=== PATIENT | male | born 1975 | race African-American/Black ===

== ENCOUNTER → 2016-06-21 | Outpatient (CLI) | payer BC ==
[~2016-06-21] MED LIST: BLOOD PRESSURE MED
== END ==
LOC: LAB 11:01
DX: I10 Essential (primary) hypertension (principal); M25.50 Pain in unspecified joint; M06.9 Rheumatoid arthritis, unspecified
CPT/HCPCS: 86200

== ENCOUNTER → 2016-09-18 | Outpatient (CLI) | payer BC ==
[2016-09-18 10:39] LABS: Basophils # (auto) 0 uL; Basophils % (auto) 0.3 % (0.0-2.0); Eosinophils # (auto) 0 uL; Eosinophils % (auto) 0.9 % (0.0-7.0); Hemoglobin 14.6 g/dL (13.5-17.5); Lymphocytes # (auto) 2.1 uL; Lymphocytes % (auto) 36.6 % (10.0-50.0); Mean Corpuscular Hemoglobin 30.1 pg (28.0-32.0); Mean Corpuscular Hgb Conc. 33.9 g/dL (32.0-36.0); Mean Corpuscular Volume 88.8 fL (80.0-100.0); Mean Platelet Volume 9.1 fL (7.4-10.4); Monocytes # (auto) 0.4 uL; Monocytes % (auto) 7.8 % (0.0-12.0); Neutrophils # (auto) 3.1 uL; Neutrophils % (auto) 54.4 % (37.0-80.0); Platelet Count (auto) 208 10^3/uL (140-450); Red Cell Distribution Width 12.6 % (11.6-16.0); White Blood Cell 5.7 10^3/uL (4.4-10.8)
[2016-09-18 11:10] LABS: Albumin 4.1 g/dL (3.4-5.0); BUN/Creatinine Ratio 11.7; Bilirubin, Total 0.4 mg/dL (0.2-1.0); Calcium 9.4 mg/dL (8.5-10.1); Potassium 3.8 mmol/L (3.5-5.1); Total Protein 8.5 g/dL (6.4-8.2)
== END | disposition home or self-care (01) ==
LOC: LAB 09:45
DX: M06.9 Rheumatoid arthritis, unspecified (principal); M25.50 Pain in unspecified joint; D64.9 Anemia, unspecified; I10 Essential (primary) hypertension
CPT/HCPCS: 36415; 80053; 85025; 85652; 86141

== ENCOUNTER → 2017-02-05 | Outpatient (CLI) | payer BC ==
[2017-02-05 08:43] LABS: Basophils # (auto) 0 uL; Basophils % (auto) 0.3 % (0.0-2.0); Eosinophils # (auto) 0 uL; Hematocrit 40.3 % (41.0-53.0); Lymphocytes # (auto) 1.5 uL; Lymphocytes % (auto) 33.9 % (10.0-50.0); Mean Corpuscular Hemoglobin 30.7 pg (28.0-32.0); Mean Corpuscular Hgb Conc. 34.7 g/dL (32.0-36.0); Mean Corpuscular Volume 88.4 fL (80.0-100.0); Mean Platelet Volume 8.6 fL (6.9-10.8); Monocytes # (auto) 0.4 uL; Monocytes % (auto) 9.4 % (0.0-12.0); Neutrophils # (auto) 2.5 uL; Neutrophils % (auto) 55.4 % (37.0-80.0); Nucleated Red Blood Cells % 0.1 %; Platelet Count (auto) 169 10^3/uL (140-450); Red Cell Distribution Width 12.3 % (11.8-14.3); White Blood Cell 4.6 10^3/uL (4.4-10.8)
[2017-02-05 09:13] LABS: Albumin 3.9 g/dL (3.4-5.0); BUN/Creatinine Ratio 11.5; Bilirubin, Total 0.3 mg/dL (0.2-1.0); Calcium 8.8 mg/dL (8.5-10.1); Potassium 3.9 mmol/L (3.5-5.1)
== END | disposition home or self-care (01) ==
LOC: LAB 08:28
DX: I10 Essential (primary) hypertension (principal); M06.9 Rheumatoid arthritis, unspecified; D64.9 Anemia, unspecified; Z79.899 Other long term (current) drug therapy; M25.50 Pain in unspecified joint
CPT/HCPCS: 36415; 80053; 85025; 85652; 86141

== ENCOUNTER → 2018-02-12 | Outpatient (CLI) | payer BC ==
[2018-02-12 13:42] LABS: Urine Bacteria NONE SEEN /hpf (None Seen); Urine Blood Negative /uL (Negative); Urine Specific Gravity 1.021 (1.001-1.035); Urine WBC 1 /hpf (0 - 3)
[2018-02-12 14:19] LABS: Albumin 3.9 g/dL (3.4-5.0); Potassium 4.3 mmol/L (3.5-5.1)
[2018-02-12 14:21] LABS: BUN/Creatinine Ratio 9.2; CRP High Sensitivity 0.44 mg/dL (< 0.3); Calcium 8.5 mg/dL (8.5-10.1); Total Protein 8.3 g/dL (6.4-8.2); Uric Acid 6.9 mg/dL (3.5-7.2)
[2018-02-12 14:23] LABS: Bilirubin, Total 0.6 mg/dL (0.2-1.0)
[2018-02-12 14:41] LABS: Basophils # (auto) 0 uL; Eosinophils # (auto) 0 uL
[2018-02-12 14:46] LABS: Basophils % (auto) 0.2 % (0.0-2.0); Eosinophils % (auto) 0.7 % (0.0-7.0); Hematocrit 38.4 % (41.0-53.0); Hemoglobin 13.4 g/dL (13.5-17.5); Lymphocytes # (auto) 1.6 uL; Lymphocytes % (auto) 27.3 % (10.0-50.0); Mean Corpuscular Hemoglobin 30.9 pg (28.0-32.0); Mean Corpuscular Hgb Conc. 34.8 g/dL (32.0-36.0); Mean Corpuscular Volume 88.6 fL (80.0-100.0); Monocytes # (auto) 0.5 uL; Monocytes % (auto) 7.7 % (0.0-12.0); Neutrophils # (auto) 3.8 uL; Neutrophils % (auto) 64.1 % (37.0-80.0); Platelet Count (auto) 210 10^3/uL (140-450); Red Blood Cells 4.33 10^6/uL (4.5-5.90)
[2018-02-12 17:43] LABS: Hepatitis B Core IgM Negative
[2018-02-12 17:44] LABS: Hepatitis B Surface Antigen Negative (Negative)
[2018-02-12 17:45] LABS: Hepatitis C Antibody Negative (Negative)
[2018-02-12 17:55] LABS: Hepatitis A Ab IgM Negative
[2018-02-13 20:05] LABS: Protein, Urine 28.5 mg/dL (0.0-11.9)
== END | disposition home or self-care (01) ==
LOC: LAB 12:12
PROVIDERS: ATTEND Internal Medicine
DX: M06.9 Rheumatoid arthritis, unspecified (principal)
CPT/HCPCS: 36415; 80053; 80074; 81001; 82570; 84156; 84550; 85025; 85652; 86038; 86141; 86160; 86200; 86235; 86431; 86812

== ENCOUNTER → 2018-03-24 | Outpatient (CLI) | payer BC ==
[2018-03-24 09:51] LABS: Basophils # (auto) 0 uL; Basophils % (auto) 0.2 % (0.0-2.0); Eosinophils # (auto) 0.1 uL; Hematocrit 42.2 % (41.0-53.0); Hemoglobin 14.3 g/dL (13.5-17.5); Lymphocytes # (auto) 1.9 uL; Lymphocytes % (auto) 28.5 % (10.0-50.0); Mean Corpuscular Hemoglobin 29.9 pg (28.0-32.0); Mean Corpuscular Hgb Conc. 33.9 g/dL (32.0-36.0); Mean Corpuscular Volume 88.3 fL (80.0-100.0); Monocytes # (auto) 0.5 uL; Neutrophils # (auto) 4.1 uL; Neutrophils % (auto) 62.3 % (37.0-80.0); Nucleated Red Blood Cells % 0.1 %; Platelet Count (auto) 198 10^3/uL (140-450); Red Blood Cells 4.78 10^6/uL (4.5-5.90); Red Cell Distribution Width 13.2 % (11.8-14.3); White Blood Cell 6.6 10^3/uL (4.4-10.8)
[2018-03-24 09:59] LABS: Uric Acid 7.2 mg/dL (3.5-7.2)
== END | disposition home or self-care (01) ==
LOC: LAB 09:38
PROVIDERS: ATTEND Internal Medicine
DX: M06.9 Rheumatoid arthritis, unspecified (principal); E78.5 Hyperlipidemia, unspecified
CPT/HCPCS: 36415; 80061; 84550; 85025; 86431

== ENCOUNTER → 2018-11-23 | Outpatient (CLI) | payer BC ==
[~2018-11-23] MED LIST changes: +LISI-646 PO; +METO25TA5 PO
[2018-11-23 14:07] LABS: Cholesterol 184 mg/dL (< 200); HDL Cholesterol 32 mg/dL (40-59); LDL Cholesterol 116 mg/dL (< 100); Triglycerides 266 mg/dL (< 150)
== END | disposition home or self-care (01) ==
LOC: LAB 13:28
PROVIDERS: ATTEND Family Medicine
DX: E78.00 Pure hypercholesterolemia, unspecified (principal); I10 Essential (primary) hypertension; M05.79 Rheumatoid arthritis with rheumatoid factor of multiple sites without organ or systems involvement; Z83.3 Family history of diabetes mellitus
CPT/HCPCS: 36415; 80061; 83036

== ENCOUNTER 2018-11-27 06:08 | Day surgery (SDC) | payer BC ==
[2018-11-25 13:55] LABS: Basophils # (auto) 0 uL; Basophils % (auto) 0.2 % (0.0-2.0); Eosinophils # (auto) 0.1 uL; Eosinophils % (auto) 1.1 % (0.0-7.0); Hematocrit 40.6 % (41.0-53.0); Lymphocytes # (auto) 2.2 uL; Lymphocytes % (auto) 31.5 % (10.0-50.0); Mean Corpuscular Hemoglobin 30.5 pg (28.0-32.0); Mean Corpuscular Hgb Conc. 34.5 g/dL (32.0-36.0); Mean Corpuscular Volume 88.3 fL (80.0-100.0); Monocytes # (auto) 0.8 uL; Monocytes % (auto) 10.7 % (0.0-12.0); Neutrophils % (auto) 56.5 % (37.0-80.0); Nucleated Red Blood Cells % 0.1 %; Platelet Count (auto) 214 10^3/uL (140-450); White Blood Cell 7.1 10^3/uL (4.4-10.8)
[2018-11-25 14:10] LABS: INR 0.93 (0.9-1.15); Partial Thromboplastin Time 26.9 sec (23.64-32.05)
[2018-11-25 14:17] LABS: Albumin 3.8 g/dL (3.4-5.0); BUN/Creatinine Ratio 11.4; Calcium 8.6 mg/dL (8.5-10.1); Potassium 3.7 mmol/L (3.5-5.1)
[2018-11-25 14:20] LABS: Bilirubin, Total 0.3 mg/dL (0.2-1.0); Total Protein 8.3 g/dL (6.4-8.2)
[2018-11-25 14:48] LABS: Urine Bacteria NONE SEEN /hpf (None Seen); Urine Blood Negative /uL (Negative); Urine Mucus FEW (None Seen); Urine WBC 1 /hpf (0 - 3)
[~2018-11-27] VITALS: Ht 177.8 cm; Wt 95.3 kg
[~2018-11-27 06:08] MED LIST changes: -BLOOD PRESSURE MED
[2018-11-27] MEDS ORDERED: ceFAZolin 1GM/50ML 50 ML IV ONE (07:07)
[2018-11-27] MEDS ORDERED: SUCCINYLCHOLINE CHLORIDE 20 MG/ML 10ML VIAL IV ONE (07:19)
[2018-11-27] MEDS ORDERED: LIDOCAINE 1% HCL (LOCAL ANESTH.) INJ 20ML MDV ONE ×2 (07:19→07:43)
[2018-11-27] MEDS ORDERED: PROPOFOL 10 MG/ML 20 ML IV ONE (07:25)
[2018-11-27] MEDS ORDERED: METOCLOPRAMIDE HCL 5MG/ml INJ 2ml VIAL ONE (07:25)
[2018-11-27] MEDS ORDERED: MIDAZOLAM HCL 1MG/1ML-2 ML VIAL ONE (07:25)
[2018-11-27] MEDS ORDERED: ROCURONIUM 10MG/ML 10ML VIAL IV ONE (07:25)
[2018-11-27] MEDS ORDERED: fentaNYL CITRATE 100 MCG/2 ML VL ONE (07:42)
[2018-11-27] MEDS ORDERED: hydrALAZINE HCL 20 MG/ML VL ONE (07:43)
[2018-11-27] MEDS ORDERED: LIDOCAINE W/ EPINEPHRINE 1 % INJ 30ML ONE (07:43)
[2018-11-27] MEDS ORDERED: BUPIVACAINE 0.25% INJ 50ML VIAL ONE (08:02)
[2018-11-27] MEDS ORDERED: ONDANSETRON HCL 4 MG/2 ML VIAL IV ONE (08:15)
[2018-11-27] MEDS ORDERED: HYDROmorphone HCL 2 MG/ML VL IV PRN ×2 (08:15)
[2018-11-27] MEDS ORDERED: NALOXONE HCL 0.4 MG/ML VIAL IV PRN (08:15)
[2018-11-27] MEDS ORDERED: hydrALAZINE HCL 20 MG/ML VL IV PRN (08:15)
[2018-11-27] MEDS ORDERED: MEPERIDINE HCL (25 MG/ML) 1ML VIAL ONE (08:20)
[2018-11-27] MEDS ORDERED: ePHEDrine SULFATE 50 MG/ML AMP ONE (08:47)
[2018-11-27] MEDS ORDERED: SODIUM CHLORIDE LOCK 10 ML ONE (08:47)
[2018-11-27 10:57] VITALS: BP 135/82
[2018-11-27] MEDS ORDERED: PROMETHAZINE HCL 25 MG/ML 1ML IM ONE (11:20)
[2018-11-27] MEDS ORDERED: PROMETHAZINE HCL 25 MG/ML 1ML ONE (11:23)
== END 2018-11-27 11:35 | disposition home or self-care (01) ==
LOC: SUR 06:08
PROVIDERS: ATTEND Orthopaedic Surgery
DX: S43.491A Other sprain of right shoulder joint, initial encounter (principal); M75.41 Impingement syndrome of right shoulder; R22.31 Localized swelling, mass and lump, right upper limb; M19.011 Primary osteoarthritis, right shoulder; I10 Essential (primary) hypertension; G47.33 Obstructive sleep apnea (adult) (pediatric); Z79.899 Other long term (current) drug therapy; X58.XXXA Exposure to other specified factors, initial encounter; Y93.89 Activity, other specified; Y92.89 Other specified places as the place of occurrence of the external cause; Y99.8 Other external cause status
CPT/HCPCS: 23076; 23120; 29822; 29826; 36415; 80053; 81001; 85025; 85610; 85730; 88304; 88311; J0330; J0360; J0690; J1170; J2001; J2175; J2250; J2405; J2550; J2704; J2765; J3010; J3490; A4565

== ENCOUNTER → 2019-09-03 | Outpatient (CLI) | payer BC ==
[2019-09-03 10:46] LABS: Basophils # (auto) 0 10 ^3/uL (0-0.2); Basophils % (auto) 0.3 % (0.0-2.0); Eosinophils # (auto) 0 10 ^3/uL (0-0.8); Eosinophils % (auto) 0.6 % (0.0-7.0); Hematocrit 42.2 % (41.0-53.0); Lymphocytes # (auto) 1.7 10 ^3/uL (0.4-5.4); Lymphocytes % (auto) 32.7 % (10.0-50.0); Mean Corpuscular Hemoglobin 29.6 pg (28.0-32.0); Mean Corpuscular Hgb Conc. 33.1 g/dL (32.0-36.0); Mean Corpuscular Volume 89.4 fL (80.0-100.0); Monocytes # (auto) 0.3 10 ^3/uL (0-1.3); Monocytes % (auto) 6.6 % (0.0-12.0); Neutrophils # (auto) 3.1 10 ^3/uL (1.6-8.6); Neutrophils % (auto) 59.8 % (37.0-80.0); Nucleated Red Blood Cells % 0.1 %; Platelet Count (auto) 181 10^3/uL (140-450); Red Blood Cells 4.72 10^6/uL (4.5-5.90); Red Cell Distribution Width 12.6 % (11.8-14.3); White Blood Cell 5.2 10^3/uL (4.4-10.8)
[2019-09-03 10:58] LABS: Urine Bacteria NONE SEEN /hpf (None Seen); Urine Blood Negative /uL (Negative); Urine Mucus FEW (None Seen); Urine Specific Gravity 1.026 (1.001-1.035); Urine WBC <1 /hpf (0 - 3)
[2019-09-03 11:30] LABS: Albumin 3.9 g/dL (3.4-5.0); Calcium 8.8 mg/dL (8.5-10.1); Potassium 3.8 mmol/L (3.5-5.1)
[2019-09-03 11:34] LABS: BUN/Creatinine Ratio 11.3; Bilirubin, Total 0.5 mg/dL (0.2-1.0); CRP High Sensitivity 0.56 mg/dL (< 0.3); Total Protein 8.2 g/dL (6.4-8.2)
== END | disposition home or self-care (01) ==
LOC: LAB 10:27
PROVIDERS: ATTEND Family Medicine
DX: I10 Essential (primary) hypertension (principal); E78.49 Other hyperlipidemia; M25.50 Pain in unspecified joint; M05.79 Rheumatoid arthritis with rheumatoid factor of multiple sites without organ or systems involvement
CPT/HCPCS: 36415; 80053; 80061; 81001; 83615; 85025; 86141; 86225; 86235; 86704; 86706; 86708; 86803; 87340

== ENCOUNTER 2019-10-22 15:04 | Emergency (ER) | payer BC, OTHER ==
[~2019-10-22] VITALS: Ht 177.8 cm; Wt 93.0 kg
[2019-10-22 15:36] VITALS: BP 149/98
== END 2019-10-22 16:05 | disposition home or self-care (01) ==
LOC: EEVIPCON 15:04 → ER 15:04
DX: S10.93XA Contusion of unspecified part of neck, initial encounter (principal); S00.03XA Contusion of scalp, initial encounter; I10 Essential (primary) hypertension; Z79.899 Other long term (current) drug therapy; W22.8XXA Striking against or struck by other objects, initial encounter; Y93.89 Activity, other specified; Y92.89 Other specified places as the place of occurrence of the external cause; Y99.8 Other external cause status
CPT/HCPCS: 72040

== ENCOUNTER → 2019-12-06 | Outpatient (CLI) | payer OTHER | END | disposition home or self-care (01) | LOC: LAB 12:58 | PROVIDERS: ATTEND Nurse Practitioner Family | DX: Z03.818 Encounter for observation for suspected exposure to other biological agents ruled out (principal) ==

== ENCOUNTER → 2020-04-14 | Outpatient (CLI) | payer OTHER | END | disposition home or self-care (01) | LOC: LAB 13:35 | PROVIDERS: ATTEND Nurse Practitioner Family | DX: Z20.828 Contact with and (suspected) exposure to other viral communicable diseases (principal) | CPT/HCPCS: C9803; U0003 ==

== ENCOUNTER → 2021-04-04 | Outpatient (CLI) | payer BC ==
[~2021-04-04] MED LIST changes: -LISI-646 PO; +LISI20TA28 PO
[2021-04-04 15:13] LABS: Protein, Urine 25.8 mg/dL (0.0-11.9)
== END | disposition home or self-care (01) ==
LOC: LAB 14:01
PROVIDERS: ATTEND Student in an Organized Health Care Education/Training Program
DX: Z11.52 Encounter for screening for COVID-19 (principal); Z20.822 Contact with and (suspected) exposure to COVID-19
CPT/HCPCS: 82570; 84156

== ENCOUNTER → 2021-06-08 | Outpatient (CLI) | payer BC ==
[2021-06-08 15:01] LABS: Basophils # (auto) 0.2 10 ^3/uL (0-0.2); Basophils % (auto) 3.6 % (0.0-2.0); Eosinophils # (auto) 0.1 10 ^3/uL (0-0.8); Eosinophils % (auto) 0.9 % (0.0-7.0); Hematocrit 41.9 % (41.0-53.0); Hemoglobin 14.6 g/dL (13.5-17.5); Lymphocytes # (auto) 1.8 10 ^3/uL (0.4-5.4); Lymphocytes % (auto) 29.5 % (10.0-50.0); Mean Corpuscular Hemoglobin 30.6 pg (28.0-32.0); Mean Corpuscular Hgb Conc. 34.8 g/dL (32.0-36.0); Mean Corpuscular Volume 88.1 fL (80.0-100.0); Monocytes # (auto) 0.6 10 ^3/uL (0-1.3); Monocytes % (auto) 9.5 % (0.0-12.0); Neutrophils # (auto) 3.4 10 ^3/uL (1.6-8.6); Neutrophils % (auto) 56.5 % (37.0-80.0); Nucleated Red Blood Cells % 0.1 %; Red Blood Cells 4.76 10^6/uL (4.5-5.90); Red Cell Distribution Width 12.9 % (11.8-14.3)
[2021-06-08 15:20] LABS: Potassium 3.8 mmol/L (3.5-5.1)
[2021-06-08 15:24] LABS: BUN/Creatinine Ratio 13.3; Bilirubin, Total 0.3 mg/dL (0.2-1.0); CRP High Sensitivity 0.52 mg/dL (< 0.3)
== END | disposition home or self-care (01) ==
LOC: LAB 14:51
PROVIDERS: ATTEND Internal Medicine Rheumatology
DX: M05.79 Rheumatoid arthritis with rheumatoid factor of multiple sites without organ or systems involvement (principal)
CPT/HCPCS: 36415; 80053; 85025; 85652; 86141

== ENCOUNTER → 2021-07-18 | Outpatient (CLI) | payer BC ==
[2021-07-18 10:46] LABS: Potassium 3.6 mmol/L (3.5-5.1)
[2021-07-18 10:54] LABS: BUN/Creatinine Ratio 14.8; Bilirubin, Total 0.4 mg/dL (0.2-1.0); Calcium 9.2 mg/dL (8.5-10.1); Total Protein 7.9 g/dL (6.4-8.2)
== END | disposition home or self-care (01) ==
LOC: LAB 08:50
PROVIDERS: ATTEND Student in an Organized Health Care Education/Training Program
DX: I10 Essential (primary) hypertension (principal); E78.49 Other hyperlipidemia; E78.1 Pure hyperglyceridemia; Z83.3 Family history of diabetes mellitus
CPT/HCPCS: 36415; 80053; 80061; 82274; 83036

== ENCOUNTER → 2021-11-29 | Outpatient (CLI) | payer BC | END | disposition home or self-care (01) | LOC: LAB 10:47 | PROVIDERS: ATTEND Nurse Practitioner Family | DX: Z20.822 Contact with and (suspected) exposure to COVID-19 (principal) | CPT/HCPCS: C9803; U0003 ==

== ENCOUNTER → 2022-02-15 | Outpatient (CLI) | payer BC ==
[2022-02-15 06:39] LABS: Basophils # (auto) 0 10 ^3/uL (0-0.2); Basophils % (auto) 0.1 % (0.0-2.0); Eosinophils # (auto) 0.1 10 ^3/uL (0-0.8); Hematocrit 41.9 % (41.0-53.0); Hemoglobin 14.1 g/dL (13.5-17.5); Lymphocytes # (auto) 1.8 10 ^3/uL (0.4-5.4); Lymphocytes % (auto) 30.1 % (10.0-50.0); Mean Corpuscular Hemoglobin 29.6 pg (28.0-32.0); Mean Corpuscular Hgb Conc. 33.6 g/dL (32.0-36.0); Mean Corpuscular Volume 88.2 fL (80.0-100.0); Monocytes # (auto) 0.5 10 ^3/uL (0-1.3); Monocytes % (auto) 7.8 % (0.0-12.0); Neutrophils # (auto) 3.7 10 ^3/uL (1.6-8.6); Nucleated Red Blood Cells % 0.2 %; Red Blood Cells 4.76 10^6/uL (4.5-5.90); Red Cell Distribution Width 13.1 % (11.8-14.3); White Blood Cell 6.1 10^3/uL (4.4-10.8)
[2022-02-15 08:04] LABS: Albumin 3.8 g/dL (3.4-5.0); BUN/Creatinine Ratio 13.8; Bilirubin, Total 0.4 mg/dL (0.2-1.0); Calcium 8.9 mg/dL (8.5-10.1); Total Protein 7.5 g/dL (6.4-8.2)
== END | disposition home or self-care (01) ==
LOC: LAB 06:23
PROVIDERS: ATTEND Student in an Organized Health Care Education/Training Program
DX: I10 Essential (primary) hypertension (principal); E78.5 Hyperlipidemia, unspecified
CPT/HCPCS: 36415; 80053; 80061; 85025

== ENCOUNTER 2022-06-19 00:36 | Emergency (ER) | payer BC, OTHER ==
[~2022-06-19] VITALS: Ht 177.8 cm; Wt 98.0 kg
[2022-06-19 01:06] LABS: Basophils # (auto) 0 10 ^3/uL (0-0.2); Basophils % (auto) 0.2 % (0.0-2.0); Eosinophils # (auto) 0.1 10 ^3/uL (0-0.8); Eosinophils % (auto) 0.7 % (0.0-7.0); Hematocrit 41.5 % (41.0-53.0); Hemoglobin 14.4 g/dL (13.5-17.5); Lymphocytes # (auto) 2.9 10 ^3/uL (0.4-5.4); Lymphocytes % (auto) 35.2 % (10.0-50.0); Mean Corpuscular Hemoglobin 30.6 pg (28.0-32.0); Mean Corpuscular Hgb Conc. 34.6 g/dL (32.0-36.0); Mean Corpuscular Volume 88.3 fL (80.0-100.0); Monocytes # (auto) 0.8 10 ^3/uL (0-1.3); Monocytes % (auto) 10.3 % (0.0-12.0); Neutrophils # (auto) 4.4 10 ^3/uL (1.6-8.6); Neutrophils % (auto) 53.6 % (37.0-80.0); Nucleated Red Blood Cells % 0.2 %; Red Cell Distribution Width 13.2 % (11.8-14.3); White Blood Cell 8.2 10^3/uL (4.4-10.8)
[2022-06-19 01:13] LABS: INR 0.92 (0.9-1.15); Partial Thromboplastin Time 27.4 sec (24.6-33.4)
[2022-06-19 01:17] LABS: Albumin 3.9 g/dL (3.4-5.0); BUN/Creatinine Ratio 15.2; Magnesium 2.4 mg/dL (1.6-2.6); Potassium 3.1 mmol/L (3.5-5.1)
[2022-06-19 01:24] LABS: Bilirubin, Total 0.3 mg/dL (0.2-1.0); Total Protein 8.2 g/dL (6.4-8.2)
[2022-06-19] MEDS ORDERED: POTASSIUM EFFERVESENT TAB 25 MEQ PO ONE (03:45)
[2022-06-19 04:00] VITALS: BP 117/63
[2022-06-19] MEDS ORDERED: POTA10TA51 PO (04:14)
== END 2022-06-19 04:51 | disposition admitted as inpatient to this hospital (09) ==
LOC: EEVIPCON 00:36 → ER 00:36
DX: R00.2 Palpitations (principal); N17.9 Acute kidney failure, unspecified; E87.6 Hypokalemia; I10 Essential (primary) hypertension; Z98.890 Other specified postprocedural states
CPT/HCPCS: 36415; 71045; 80053; 83735; 83880; 84484; 85025; 85610; 85730; 93005

== ENCOUNTER → 2022-07-04 | Outpatient (CLI) | payer BC ==
[~2022-07-04] MED LIST changes: +POTA10TA51 PO
[2022-07-04 15:32] LABS: Free T4 (Free Thyroxine) 1.16 ng/dL (0.89-1.76)
[2022-07-04 15:33] LABS: Free T3 3.39 pg/mL (2.3-4.2)
== END | disposition home or self-care (01) ==
LOC: LAB 14:23
PROVIDERS: ATTEND Internal Medicine
DX: I10 Essential (primary) hypertension (principal); E78.49 Other hyperlipidemia; R00.2 Palpitations; R53.83 Other fatigue
CPT/HCPCS: 36415; 84403; 84439; 84443; 84481

== ENCOUNTER → 2022-07-04 | Outpatient (CLI) | payer BC | END | disposition home or self-care (01) | LOC: XYW 07:32 | PROVIDERS: ATTEND Internal Medicine | DX: I07.1 Rheumatic tricuspid insufficiency (principal); R00.2 Palpitations | CPT/HCPCS: 93306 ==

== ENCOUNTER → 2022-07-05 | Outpatient (CLI) | payer BC | END | disposition home or self-care (01) | LOC: XYW 10:03 | PROVIDERS: ATTEND Internal Medicine | DX: I12.9 Hypertensive chronic kidney disease with stage 1 through stage 4 chronic kidney disease, or unspecified chronic kidney disease (principal); N18.2 Chronic kidney disease, stage 2 (mild); R00.2 Palpitations; R07.89 Other chest pain; R53.83 Other fatigue; R06.83 Snoring; R29.818 Other symptoms and signs involving the nervous system; E78.5 Hyperlipidemia, unspecified; R79.89 Other specified abnormal findings of blood chemistry | CPT/HCPCS: 78452; 93017; A9500 ==

== ENCOUNTER 2022-09-04 07:14 | Day surgery (SDC) | payer BC ==
[2022-09-02 14:38] LABS: Basophils # (auto) 0.2 10 ^3/uL (0-0.2); Basophils % (auto) 3.5 % (0.0-2.0); Eosinophils # (auto) 0.1 10 ^3/uL (0-0.8); Hemoglobin 13.9 g/dL (13.5-17.5); Lymphocytes # (auto) 1.9 10 ^3/uL (0.4-5.4); Lymphocytes % (auto) 35.6 % (10.0-50.0); Mean Corpuscular Hemoglobin 30.2 pg (28.0-32.0); Mean Corpuscular Hgb Conc. 33.9 g/dL (32.0-36.0); Mean Corpuscular Volume 89.2 fL (80.0-100.0); Monocytes # (auto) 0.4 10 ^3/uL (0-1.3); Monocytes % (auto) 7.5 % (0.0-12.0); Neutrophils # (auto) 2.8 10 ^3/uL (1.6-8.6); Neutrophils % (auto) 52.4 % (37.0-80.0); Nucleated Red Blood Cells % 0.3 %; Red Blood Cells 4.59 10^6/uL (4.5-5.90); Red Cell Distribution Width 13.1 % (11.8-14.3); White Blood Cell 5.4 10^3/uL (4.4-10.8)
[2022-09-02 15:06] LABS: Potassium 3.9 mmol/L (3.5-5.1)
[2022-09-02 15:14] LABS: Albumin 4.1 g/dL (3.4-5.0); BUN/Creatinine Ratio 11.9 (10.0-20.0); Bilirubin, Total 0.4 mg/dL (0.2-1.0); Total Protein 7.8 g/dL (6.4-8.2)
[2022-09-02 15:19] LABS: INR 0.94 (0.9-1.15); Partial Thromboplastin Time 28.2 sec (24.6-33.4)
[~2022-09-04] VITALS: Ht 177.8 cm; Wt 97.5 kg
[~2022-09-04 07:14] MED LIST changes: +AMIO200T33 PO; +APIX5TAB PO; +HYDR25TA5 PO; -LISI20TA28 PO; +LOSA25TA38 PO; -POTA10TA51 PO
[2022-09-04] MEDS ORDERED: MIDAZOLAM HCL 2MG/2ML 2ml VIAL (1mg/ml) ONE (09:50)
[2022-09-04] MEDS ORDERED: fentaNYL CITRATE 100 MCG/2 ML VL ONE (09:50)
[2022-09-04] MEDS ORDERED: VERAPAMIL 2.5MG/ML INJ 2ML VIAL IV ONE (09:50)
[2022-09-04] MEDS ORDERED: ANGIOMAX 250 MG VIAL IV ONE (09:50)
[2022-09-04] MEDS ORDERED: HEPARIN SODIUM (PORCINE) 5000 UNITS/ML 1ML VIAL ONE (09:50)
[2022-09-04] MEDS ORDERED: LIDOCAINE 2%HCL (LOCAL ANESTH.) INJ 20ML MDV ONE (09:50)
[2022-09-04] MEDS ORDERED: SODIUM CHL 0.9% 0 ML ONE ×2 (09:51→09:56)
[2022-09-04] MEDS ORDERED: IODIXANOL 320MG/ML 100ML BTL IV ONE (09:51)
[2022-09-04] MEDS ORDERED: NITROGLYCERIN 5MG/ML 10ML VIAL IV ONE (09:56)
== END 2022-09-04 12:50 | disposition home or self-care (01) ==
LOC: EEVIPCON → CATH 07:14
PROVIDERS: ATTEND Internal Medicine
DX: R07.89 Other chest pain (principal); I10 Essential (primary) hypertension; Z80.9 Family history of malignant neoplasm, unspecified; Z79.899 Other long term (current) drug therapy; Z20.822 Contact with and (suspected) exposure to COVID-19
CPT/HCPCS: 36415; 76937; 80053; 85025; 85610; 85730; 93458; C1769; C1887; C1894; J1644; J2250; J3010; Q9967; 99152; 99153; J3490

== ENCOUNTER → 2022-09-27 | Outpatient (CLI) | payer BC | END | disposition home or self-care (01) | LOC: LAB 08:55 | PROVIDERS: ATTEND Internal Medicine | DX: R68.82 Decreased libido (principal) | CPT/HCPCS: 36415; 82626; 84403 ==

== ENCOUNTER → 2022-11-21 | Outpatient (CLI) | payer BC ==
[~2022-11-21] MED LIST changes: +LOSA25TA15 PO; -LOSA25TA38 PO
== END | disposition home or self-care (01) ==
LOC: LAB 08:06
PROVIDERS: ATTEND Internal Medicine
DX: R86.1 Abnormal level of hormones in specimens from male genital organs (principal)
CPT/HCPCS: 36415; 84403

== ENCOUNTER → 2022-12-11 | Outpatient (CLI) | payer BC ==
[2022-12-11 13:35] LABS: Basophils # (auto) 0 10 ^3/uL (0-0.2); Basophils % (auto) 0.2 % (0.0-2.0); Eosinophils # (auto) 0 10 ^3/uL (0-0.8); Eosinophils % (auto) 0.7 % (0.0-7.0); Hemoglobin 16.3 g/dL (13.5-17.5); Lymphocytes # (auto) 1.9 10 ^3/uL (0.4-5.4); Lymphocytes % (auto) 29.3 % (10.0-50.0); Mean Corpuscular Hemoglobin 30.9 pg (28.0-32.0); Mean Corpuscular Hgb Conc. 33.2 g/dL (32.0-36.0); Mean Corpuscular Volume 93.2 fL (80.0-100.0); Monocytes # (auto) 0.5 10 ^3/uL (0-1.3); Monocytes % (auto) 7.7 % (0.0-12.0); Neutrophils # (auto) 3.9 10 ^3/uL (1.6-8.6); Neutrophils % (auto) 62.1 % (37.0-80.0); Nucleated Red Blood Cells % 0.1 %; Red Blood Cells 5.27 10^6/uL (4.5-5.90); White Blood Cell 6.3 10^3/uL (4.4-10.8)
[2022-12-11 13:56] LABS: Albumin 4.3 g/dL (3.4-5.0); Calcium 9.2 mg/dL (8.5-10.1); Potassium 4.2 mmol/L (3.5-5.1)
[2022-12-11 14:03] LABS: BUN/Creatinine Ratio 7.3 (10.0-20.0); Bilirubin, Total 0.5 mg/dL (0.2-1.0); Total Protein 8.7 g/dL (6.4-8.2)
== END | disposition home or self-care (01) ==
LOC: LAB 13:21
PROVIDERS: ATTEND Internal Medicine
DX: I10 Essential (primary) hypertension (principal); E29.1 Testicular hypofunction; R79.89 Other specified abnormal findings of blood chemistry
CPT/HCPCS: 36415; 80053; 84403; 85025

== ENCOUNTER → 2023-03-14 | Outpatient (CLI) | payer BC | END | disposition home or self-care (01) | LOC: LAB 12:13 | PROVIDERS: ATTEND Internal Medicine | DX: E29.1 Testicular hypofunction (principal) | CPT/HCPCS: 36415; 84403 ==

== ENCOUNTER → 2023-09-19 | Day surgery (SDC) | payer BC ==
[2023-09-16 08:42] LABS: Urine Bacteria None Seen /hpf (None Seen)
[2023-09-16 08:49] LABS: Basophils # (auto) 0 10 ^3/uL (0-0.2); Basophils % (auto) 0.3 % (0.0-2.0); Eosinophils # (auto) 0 10 ^3/uL (0-0.8); Eosinophils % (auto) 0.8 % (0.0-7.0); Hematocrit 47.9 % (41.0-53.0); Hemoglobin 15.9 g/dL (13.5-17.5); Lymphocytes # (auto) 1.3 10 ^3/uL (0.4-5.4); Lymphocytes % (auto) 24.2 % (10.0-50.0); Mean Corpuscular Hemoglobin 30.8 pg (28.0-32.0); Mean Corpuscular Hgb Conc. 33.2 g/dL (32.0-36.0); Mean Corpuscular Volume 92.9 fL (80.0-100.0); Monocytes # (auto) 0.5 10 ^3/uL (0-1.3); Monocytes % (auto) 9.1 % (0.0-12.0); Neutrophils # (auto) 3.6 10 ^3/uL (1.6-8.6); Neutrophils % (auto) 65.6 % (37.0-80.0); Red Blood Cells 5.16 10^6/uL (4.5-5.90); Red Cell Distribution Width 13.7 % (11.8-14.3); White Blood Cell 5.5 10^3/uL (4.4-10.8)
[2023-09-16 08:59] LABS: Urine Blood Negative /uL (Negative); Urine Clarity Clear (Clear); Urine Color Light-Yellow (Yellow); Urine Mucus FEW (None Seen); Urine Protein, UAD Negative (Negative); Urine Specific Gravity 1.018 (1.001-1.035); Urine Urobilinogen Normal (Negative); Urine WBC 1 /hpf (0 - 3); Urine pH 5.5 (5.0-9.0)
[2023-09-16 09:05] LABS: INR 1.01 (0.9-1.15); Partial Thromboplastin Time 27.6 SEC (24.5-34.5); Prothrombin Time 10.7 sec (9.3-11.8)
[2023-09-16 09:23] LABS: Alanine Aminotransferase 42 U/L (7-40); Albumin 4.6 g/dL (3.2-4.8); Alkaline Phosphatase 70 U/L (46-116); Anion Gap 3 (5-15); Aspartate Aminotransferase 27 U/L (13-40); BUN/Creatinine Ratio 9.9 (10.0-20.0); Blood Urea Nitrogen 15 mg/dL (9-23); Calcium 9.8 mg/dL (8.5-10.1); Carbon Dioxide 29 mmol/L (20-30); Chloride 108 mmol/L (98-107); Glucose 98 mg/dL (74-106); Potassium 3.8 mmol/L (3.5-5.1); Sodium 140 mmol/L (136-145)
[2023-09-16 09:24] LABS: Bilirubin, Total 0.5 mg/dL (0.2-1.0); Total Protein 7.5 g/dL (5.7-8.2)
[~2023-09-19] VITALS: Ht 177.8 cm; Wt 95.3 kg
[~2023-09-19] MED LIST changes: +EMPA1TAB3 PO; +KETAMINE 50mg/ML 1ml syringe ONE; +LIDOCAINE 2% (LOCAL ANESTH.) PF 5ml SDV ONE; +LOSA-535 PO; -LOSA25TA15 PO; +MIDAZOLAM HCL 2MG/2ML 2ml VIAL (1mg/ml) ONE; +ONDANSETRON HCL 4 MG/2 ML VIAL IV ONE; +ONDANSETRON HCL 4 MG/2 ML VIAL ONE; +PROPOFOL 10 MG/ML 20 ML IV ONE; +ROSU10TA16 PO; +fentaNYL CITRATE 100 MCG/2 ML VL ONE
[2023-09-19 10:37] VITALS: TEMP 98.4; O2SAT 100
[2023-09-19 11:35] VITALS: BP 138/84; PULSE 56; RESP 17; O2SAT 98
== END | disposition home or self-care (01) ==
LOC: GI 05:55
PROVIDERS: ATTEND Internal Medicine Gastroenterology
DX: R19.4 Change in bowel habit (principal); K29.50 Unspecified chronic gastritis without bleeding; K64.8 Other hemorrhoids; K29.80 Duodenitis without bleeding; K44.9 Diaphragmatic hernia without obstruction or gangrene; G47.33 Obstructive sleep apnea (adult) (pediatric); I12.9 Hypertensive chronic kidney disease with stage 1 through stage 4 chronic kidney disease, or unspecified chronic kidney disease; N18.2 Chronic kidney disease, stage 2 (mild); Z80.8 Family history of malignant neoplasm of other organs or systems; Z79.899 Other long term (current) drug therapy; Z98.890 Other specified postprocedural states
CPT/HCPCS: 36415; 43239; 45378; 80053; 81001; 85025; 85610; 85730; 88305; 88312; 88342; J2001; J2250; J2405; J2704; J3010; J7030

== ENCOUNTER → 2023-10-01 | Outpatient (CLI) | payer BC ==
[~2023-10-01] MED LIST changes: -KETAMINE 50mg/ML 1ml syringe ONE; -LIDOCAINE 2% (LOCAL ANESTH.) PF 5ml SDV ONE; -MIDAZOLAM HCL 2MG/2ML 2ml VIAL (1mg/ml) ONE; -ONDANSETRON HCL 4 MG/2 ML VIAL IV ONE; -ONDANSETRON HCL 4 MG/2 ML VIAL ONE; -PROPOFOL 10 MG/ML 20 ML IV ONE; -fentaNYL CITRATE 100 MCG/2 ML VL ONE
[2023-10-01 11:18] LABS: Urine Bacteria None Seen /hpf (None Seen)
[2023-10-01 11:27] LABS: Potassium 3.7 mmol/L (3.5-5.1)
[2023-10-01 11:28] LABS: Basophils # (auto) 0 10 ^3/uL (0-0.2); Basophils % (auto) 0.3 % (0.0-2.0); Calcium 9.5 mg/dL (8.5-10.1); Eosinophils # (auto) 0.1 10 ^3/uL (0-0.8); Hemoglobin 15.1 g/dL (13.5-17.5); Lymphocytes # (auto) 1.3 10 ^3/uL (0.4-5.4); Lymphocytes % (auto) 25.6 % (10.0-50.0); Mean Corpuscular Hemoglobin 31.9 pg (28.0-32.0); Mean Corpuscular Hgb Conc. 34.2 g/dL (32.0-36.0); Mean Corpuscular Volume 93.1 fL (80.0-100.0); Monocytes # (auto) 0.4 10 ^3/uL (0-1.3); Neutrophils # (auto) 3.3 10 ^3/uL (1.6-8.6); Neutrophils % (auto) 65.1 % (37.0-80.0); Nucleated Red Blood Cells % 0.4 %; Red Blood Cells 4.73 10^6/uL (4.5-5.90); Red Cell Distribution Width 13.7 % (11.8-14.3)
[2023-10-01 11:33] LABS: BUN/Creatinine Ratio 9.6 (10.0-20.0)
[2023-10-01 11:35] LABS: Albumin 3.8 g/dL (3.2-4.8)
[2023-10-01 11:36] LABS: Phosphorus 2.7 mg/dL (2.4-5.1)
[2023-10-01 11:47] LABS: Urine Blood Negative /uL (Negative); Urine Clarity Clear (Clear); Urine Color Light-Yellow (Yellow); Urine Protein, UAD TRACE (Negative); Urine Urobilinogen Normal (Negative); Urine WBC <1 /hpf (0 - 3)
[2023-10-01 11:55] LABS: Uric Acid 5.2 mg/dL (3.7-9.2)
[2023-10-03 12:46] LABS: Creatinine, Urine 127.68 mg/dL (30.0-125.0)
[2023-10-03 13:59] LABS: Body Surface Area 2.13; Creatinine Clearance, Urine 64.12 mL/min (75-115)
== END | disposition home or self-care (01) ==
LOC: LAB 10:34
PROVIDERS: ATTEND Internal Medicine Nephrology
DX: E11.22 Type 2 diabetes mellitus with diabetic chronic kidney disease (principal); N18.30 Chronic kidney disease, stage 3 unspecified; M10.9 Gout, unspecified; E55.9 Vitamin D deficiency, unspecified; D63.1 Anemia in chronic kidney disease; N39.0 Urinary tract infection, site not specified; R80.9 Proteinuria, unspecified; E21.3 Hyperparathyroidism, unspecified; E11.21 Type 2 diabetes mellitus with diabetic nephropathy
CPT/HCPCS: 36415; 80069; 81001; 82043; 82306; 82575; 82595; 83540; 83970; 84550; 85025

== ENCOUNTER → 2024-04-12 | Outpatient (CLI) | payer BC ==
[2024-04-12 07:58] LABS: Urine Bacteria None Seen /hpf (None Seen)
[2024-04-12 10:02] LABS: Urine Blood Negative /uL (Negative); Urine Clarity Clear (Clear); Urine Color Light-Yellow (Yellow); Urine Protein, UAD TRACE (Negative); Urine Specific Gravity 1.032 (1.001-1.035); Urine Urobilinogen Normal (Negative); Urine WBC 1 /hpf (0 - 3); Urine pH 6.5 (5.0-9.0)
[2024-04-12 10:06] LABS: Basophils # (auto) 0 10 ^3/uL (0-0.2); Basophils % (auto) 0.2 % (0.0-2.0); Eosinophils # (auto) 0.1 10 ^3/uL (0-0.8); Eosinophils % (auto) 1.2 % (0.0-7.0); Hematocrit 45.9 % (41.0-53.0); Hemoglobin 15.7 g/dL (13.5-17.5); Lymphocytes # (auto) 1.4 10 ^3/uL (0.4-5.4); Mean Corpuscular Hemoglobin 31.3 pg (28.0-32.0); Mean Corpuscular Hgb Conc. 34.1 g/dL (32.0-36.0); Mean Corpuscular Volume 91.7 fL (80.0-100.0); Monocytes # (auto) 0.7 10 ^3/uL (0-1.3); Monocytes % (auto) 12.2 % (0.0-12.0); Neutrophils # (auto) 3.4 10 ^3/uL (1.6-8.6); Neutrophils % (auto) 61.4 % (37.0-80.0); Nucleated Red Blood Cells % 0.1 %; Platelet Count (auto) 174 10^3/uL (140-450); Red Blood Cells 5.01 10^6/uL (4.5-5.90); White Blood Cell 5.6 10^3/uL (4.4-10.8)
[2024-04-12 10:20] LABS: Protein, Urine 36.1 mg/dL (1-14)
[2024-04-12 10:23] LABS: Creatinine, Urine 186.28 mg/dL (30.0-125.0)
[2024-04-12 10:25] LABS: Alanine Aminotransferase 32 U/L (7-40); Albumin 4.6 g/dL (3.2-4.8); Alkaline Phosphatase 83 U/L (46-116); Anion Gap 6 (5-15); Aspartate Aminotransferase 23 U/L (13-40); BUN/Creatinine Ratio 8.9 (10.0-20.0); Blood Urea Nitrogen 13 mg/dL (9-23); Calcium 9.7 mg/dL (8.7-10.4); Carbon Dioxide 31 mmol/L (20-31); Chloride 105 mmol/L (98-107); Cholesterol 137 mg/dL (< 200); GFR African American 66 mL/min; GFR Non-African American 54 mL/min; Glucose 90 mg/dL (74-106); LDL Cholesterol 71 mg/dL (< 100); Potassium 3.5 mmol/L (3.5-5.1); Sodium 142 mmol/L (136-145)
[2024-04-12 10:26] LABS: Bilirubin, Total 0.5 mg/dL (0.2-1.0); HDL Cholesterol 34 mg/dL (40-59); Total Protein 7.7 g/dL (5.7-8.2)
[2024-04-12 10:27] LABS: Triglycerides 225 mg/dL (< 150)
[2024-04-12 10:58] LABS: Prostate Specific Antigen 0.43 ng/mL (0.0-4.0)
[2024-04-12 11:01] LABS: Urine Protein/Creatinine Ratio 0.19
[2024-04-12 11:03] LABS: Ferritin 238.4 ng/mL (22-322)
[2024-04-12 13:07] LABS: Hepatitis B Surface Antigen Negative (Negative)
[2024-04-12 13:28] LABS: Hepatitis C Antibody Negative (Negative)
[2024-04-13 14:07] LABS: Anti-Nuclear Antibody Direct Negative (Negative)
== END | disposition home or self-care (01) ==
LOC: LAB 07:45
PROVIDERS: ATTEND Internal Medicine Gastroenterology
DX: N18.2 Chronic kidney disease, stage 2 (mild) (principal); E78.5 Hyperlipidemia, unspecified; R79.89 Other specified abnormal findings of blood chemistry; R94.5 Abnormal results of liver function studies; E56.9 Vitamin deficiency, unspecified; E21.3 Hyperparathyroidism, unspecified; R80.9 Proteinuria, unspecified
CPT/HCPCS: 36415; 80053; 80061; 80069; 81001; 82306; 82570; 82626; 82728; 83021; 83036; 83970; 84153; 84156; 84403; 84550; 85025; 85660; 86038; 86803; 87340

== ENCOUNTER 2024-10-23 01:20 | Inpatient (IN) | payer BC ==
[~2024-10-23] VITALS: Ht 177.8 cm; Wt 95.6 kg
[2024-10-23 01:39] LABS: Basophils # (auto) 0 10 ^3/uL (0-0.2); Basophils % (auto) 0.4 % (0.0-2.0); Eosinophils # (auto) 0.1 10 ^3/uL (0-0.8); Eosinophils % (auto) 0.8 % (0.0-7.0); Hematocrit 43.3 % (41.0-53.0); Hemoglobin 14.8 g/dL (13.5-17.5); Lymphocytes # (auto) 2.5 10 ^3/uL (0.4-5.4); Lymphocytes % (auto) 34.7 % (10.0-50.0); Mean Corpuscular Hemoglobin 30.3 pg (28.0-32.0); Mean Corpuscular Hgb Conc. 34.2 g/dL (32.0-36.0); Mean Corpuscular Volume 88.4 fL (80.0-100.0); Monocytes # (auto) 0.7 10 ^3/uL (0-1.3); Monocytes % (auto) 9.6 % (0.0-12.0); Neutrophils # (auto) 3.9 10 ^3/uL (1.6-8.6); Neutrophils % (auto) 54.5 % (37.0-80.0); Nucleated Red Blood Cells % 0.1 %; Platelet Count (auto) 189 10^3/uL (140-450); Red Cell Distribution Width 12.7 % (11.8-14.3); White Blood Cell 7.1 10^3/uL (4.4-10.8)
--- NOTE | 2024-10-23 01:42 | ED.PDOC ---
HPI Comments 49-year-old male who came to ER for chest pains. Has a history of hypertension and AFib. Has good compliance to his medications. About 15 minutes prior to arrival, patient was relaxing at home, watching television, when he developed sudden onset left-sided chest pains, sharp, stabbing, constant, non radiating, associated with shortness of breath and palpitations. Blood pressure upon arrival was 175/102 mm Hg Chief Complaint: Chest Pain Time Seen by MD: 01:40 Primary Care Provider: JOSELINE Krishnamurthy Notes: Nurses Notes Allergies: Coded Allergies: NO KNOWN ALLERGIES (Unverified , 09/02/22) Home Meds Active Scripts Nifedipine (Nifedipine Er) 60 Mg Tab, 1 TAB PO DAILY for 30 Days, #30 TAB 5 Refills Prov:ELISE WADSWORTH FEATHER CURLING MACHINE OPERATOR 10/23/24 Reported Medications Rosuvastatin Calcium (Crestor) 10 Mg Tab, 10 MG PO DAILY, TAB 09/12/23 Empagliflozin (Jardiance) 25 Mg Tab, 25 MG PO DAILY, TAB 09/12/23 Losartan Potassium (Losartan Potassium) 100 Mg Tab, 100 MG PO DAILY, TAB 09/12/23 Apixaban Base (ELIQUIS) 5 Mg Tab, 5 MG PO BID for STOPPED 08/31/22, TAB 09/02/22 Metoprolol Tartrate (Metoprolol Tartrate) 25 Mg Tab, 25 MG PO BID for HTN for 30 Days, MG 11/24/18 Information Source: Patient Mode of Arrival: Ambulatory Severity: Moderate Timing: Minutes Duration: Since onset Location: Chest (L) Radiation: No Radiation Quality: Sharp, Stabbing Onset: At Rest Cardiac Risk Factors: HTN, Other (AFib) Associated Signs and Symptoms: Palpitations Review of Systems REVIEW OF SYSTEMS: No fever, no chills, or fatigue HEENT: No sore throat, no earache, no congestion, no neck pain. Cardiac: (+) chest pain. (+) palpitations. Lungs: No shortness of breath, no cough. GI: No nausea, no vomiting, no diarrhea, no constipation, no abdominal pain : No dysuria, frequency, or urgency. No hematuria. Musculoskeletal: No joint pain , no joint swelling, no extremity edema. Skin: No rash, no itching. Neuro: No headache, no dizziness, no weakness Vital Signs Vital Signs Date Time Temp Pulse Resp B/P (MAP) Pulse Ox O2 Delivery O2 Flow Rate FiO2 10/23/24 06:00 48 11 146/87 (106) 98 10/23/24 05:13 98.0 10/23/24 02:10 Room Air* 0 21 Physical Exam General: Awake, alert and oriented. No acute distress. Skin: Skin in warm, dry and intact. Appropriate color for ethnicity. Nailbeds pink with no cyanosis. HEENT: The head is normocephalic and atraumatic. Conjunctivae are clear without exudates or hemorrhage. Sclera is non-icteric. EOM are intact. No signs of nystagmus. Eyelids are normal in appearance without swelling or lesions. Oral mucosa is pink and moist Neck: The neck is supple with normal range of motion. No JVD. Cardiac: Heart rate and rhythm are normal. No murmurs, gallops, or rubs are auscultated. Respiratory: No signs of respiratory distress. Lung sounds are clear in all lobes bilaterally without rales, rhonchi, or wheezes. Abdominal: Abdomen is soft, non-tender without distention. Bowel sounds are present and normoactive in all four quadrants. Extremities: Upper and lower extremities are atraumatic in appearance without deformity or edema. Neurological: The patient is awake, alert and oriented to person, place, and time with normal speech. Speech is clear. There is no facial asymmetry. Psychiatric: Appropriate mood and affect. Good judgement and insight. No visual or auditory hallucinations. Past Medical History PAST MEDICAL HISTORY: AFIB, HTN Past Medical History (Other): Sleep apnea Surgical History: Denies all surgeries Family History Family History: Reviewed,noncontributory to illness Social History Smoker: Non-Smoker Alcohol: Denies ETOH Use Drugs: Denies Drug Use Lives In: Home Was a procedure done? Was a procedure done?: No CP Differential Dx Differential Diagnosis: A-fib, A-Flutter, Angina, Anxiety / Panic Attack, Atrial Dysrhythmia, Electrolyte Disorder, Hyperventilation, Hypoxia, MAT, GA, PVC's Differential Diagnosis: Angina, Chest Wall Pain, Costochondritis, Esophageal r eflux/spasm, Gastritis, Myocardial Infarction X-Ray, Labs, Meds, VS Vital Signs Date Time Temp Pulse Resp B/P (MAP) Pulse Ox O2 Delivery O2 Flow Rate FiO2 10/23/24 06:00 48 11 146/87 (106) 98 10/23/24 05:39 49 10/23/24 05:13 98.0 10/23/24 04:13 98.2 10/23/24 04:00 49 10/23/24 04:00 52 12 145/93 (110) 97 10/23/24 02:46 51 10/23/24 02:10 98.2 51 16 161/88 (112) 98 98.2 10/23/24 02:10 51 16 98 Room Air* 0 21 10/23/24 01:35 97.7 65 18 148/108 (121) 95 97.7 10/23/24 01:35 59 Lab Test 10/23/24 05:34 10/23/24 02:44 10/23/24 02:33 10/23/24 01:28 Range/Units Magnesium Level 2.4 2.4 1.6-2.6 mg/dL Troponin I High Sensitivity < 3 L < 3 L < 3 L </=54 ng/L Thyroid Stimulating Hormone (TSH) 2.28 0.55-4.78 uIU/mL POC Glucose 75 70-106 mg/dl White Blood Count 7.1 4.4-10.8 10^3/uL Red Blood Count 4.90 4.5-5.90 10^6/uL Hemoglobin 14.8 13.5-17.5 g/dL Hematocrit 43.3 41.0-53.0 % Mean Corpuscular Volume 88.4 80.0-100.0 fL Mean Corpuscular Hemoglobin 30.3 28.0-32.0 pg Mean Corpuscular Hemoglobin Concent 34.2 32.0-36.0 g/dL Red Cell Distribution Width 12.7 11.8-14.3 % Platelet Count 189 140-450 10^3/uL Mean Platelet Volume 9.5 6.9-10.8 fL Neutrophils (%) (Auto) 54.5 37.0-80.0 % Lymphocytes (%) (Auto) 34.7 10.0-50.0 % Monocytes (%) (Auto) 9.6 0.0-12.0 % Eosinophils (%) (Auto) 0.8 0.0-7.0 % Basophils (%) (Auto) 0.4 0.0-2.0 % Neutrophils # (Auto) 3.9 1.6-8.6 10 ^3/uL Lymphocytes # (Auto) 2.5 0.4-5.4 10 ^3/uL Monocytes # (Auto) 0.7 0-1.3 10 ^3/uL Eosinophils # (Auto) 0.1 0-0.8 10 ^3/uL Basophils # (Auto) 0 0-0.2 10 ^3/uL Nucleated Red Blood Cells 0.1 % Sodium Level 143 136-145 mmol/L Potassium Level 3.9 3.5-5.1 mmol/L Chloride Level 106 98-107 mmol/L Carbon Dioxide Level 27 20-31 mmol/L Anion Gap 10 5-15 Blood Urea Nitrogen 18 9-23 mg/dL Creatinine 1.58 H 0.700-1.30 mg/dL Glomerular Filtration Rate Calc 53 >90 mL/min BUN/Creatinine Ratio 11.4 10.0-20.0 Serum Glucose 98 74-106 mg/dL Hemoglobin A1c 5.2 <5.7 % A1C Calcium Level 9.3 8.7-10.4 mg/dL Total Bilirubin 0.4 0.2-1.0 mg/dL Aspartate Amino Transferase (AST) 21 <34 U/L Alanine Aminotransferase (ALT) 19 7-40 U/L Alkaline Phosphatase 79 46-116 U/L B-Type Natriuretic Peptide 19.11 0-100 pg/mL Total Protein 7.7 5.7-8.2 g/dL Albumin 4.9 H 3.2-4.8 g/dL Free Thyroxine (T4) Calculated 1.69 0.89-1.76 ng/dL Current Medications Medications (Trade) Dose Ordered Sig/Ita Route Start Time Stop Time Status Last Admin Acetaminophen (Tylenol Tablet) 650 mg ONCE ONCE PO 10/23/24 03:30 10/23/24 03:31 DC 10/23/24 04:13 CHEST RADIOGRAPH Indication: Chest pain, palpitations Technique: Single frontal view of the chest was obtained COMPARISON: CHEST PORTABLE on DOS: 06/19/22, CXRP on DOS: 06/18/22 FINDINGS: Lines and Tubes: None Lungs: Clear Pleura: No effusion. No pneumothorax. Cardiomediastinal contours: Unremarkable Bones: Unremarkable IMPRESSION: 1. No acute disease. Time of 1ST Reevaluation: 01:37 Reevaluation 1ST: Unchanged Patient Education/Counseling: Diagnosis, Treatment, Prognosis, Need For Follow Up Family Education/Counseling: No Family Present Comments pt has afib, htn, but no known cad. however, last night, while watching tv, suddenly flet palpitations. as the palpitations became "harder," he developed chest pressure. although the cardiac workup is unremarkable a this time, i am concerned for unstable angina. he will be admitted for cardiology consult. he is asymptomatic currently SEPSIS Sepsis Screen Physician Orders Electrocardigram (10/23/24 04:22) Chest Xray 1 View (10/23/24 01:29) Cardiac Diet-2gna,Lofat,Lochol (10/23/24 Breakfast) Vital Signs Date Time Temp Pulse Resp B/P (MAP) Pulse Ox O2 Delivery O2 Flow Rate FiO2 10/23/24 06:00 48 11 146/87 (106) 98 10/23/24 05:39 49 10/23/24 05:13 98.0 10/23/24 04:13 98.2 10/23/24 04:00 49 10/23/24 04:00 52 12 145/93 (110) 97 10/23/24 02:46 51 10/23/24 02:10 98.2 51 16 161/88 (112) 98 98.2 10/23/24 02:10 51 16 98 Room Air* 0 21 10/23/24 01:35 97.7 65 18 148/108 (121) 95 97.7 10/23/24 01:35 59 Laboratory Tests Test 10/23/24 01:28 White Blood Count 7.1 10^3/uL (4.4-10.8) Departure 1 Departure Time of Disposition: 05:29 Impression: Primary Impression: Chest pain Qualified Codes: I20.0 - Unstable angina Additional Impressions: Palpitations Renal insufficiency Disposition: ADMITTED INPATIENT Admit to: Tele Condition: Stable e-Prescriptions Nifedipine (Nifedipine Er) 60 Mg Tab 1 TAB PO DAILY for 30 Days, #30 TAB 5 Refills Prov: ELISE WADSWORTH NP 10/23/24 Discharged With: Self Comments 49-year-old male who presents with chest pain. Signed out to Dr. Parrish at 6:00 a.m. pending 3rd troponin. I reviewed the following notes from the pt's past medical encounters: N/A The following tests were ordered, and results were reviewed by me: (See diagnostic results section) The following test were independently interpreted by me: EKG Additional information was gathered from interviewing the following independent historians: N/A I reviewed and agreed with the following test results read by other providers: Chest x-ray I discussed treatments and results with patient Decision regarding hospitalization or escalation of hospital level of care: Risks and benefits of admission for further treatment of patient's condition was considered however due to patient's stable condition patient will be discharged to follow up closely or return to care for worsening of condition or inability to follow up. Critical Care Note Critical Care Time?: Yes (45 min-critical care time only) Critical care comment: Due to concerns for patients condition deteriorating, the care required my highest level of attention and readiness to intervene. I assessed the patient, reviewed the medical records, ordered the appropriate tests and treatments, then reassessed for results and responsiveness. I communicated with medical personnel and consultants and formulated a plan of care. Total critical care time excludes any procedures Stability Stability form required: No Heart Score Heart Score: Heart Score Response (Comments) Value History Highly Suspicious 2 EKG Repolarization Disturb 1 Age 45-64 1 Risk Factors 1 or 2 risk factors 1 Troponin Normal limit 0 Total 5 I personally scribed for FANY BLOOM MD ([email or web address]) on 10/23/24 at 01:41. Electronically submitted by Rodriguez Diaz ([email or web address]). I personally scribed for FANY BLOOM MD ([email or web address]) on 10/23/24 at 02:20. Electronically submitted by Rodriguez Diaz ([email or web address]). FANY BLOOM MD Oct 23, 2024 01:41 JUAN R PARRISH MD Oct 23, 2024 06:37
--- NOTE | 2024-10-23 01:52 | DVH ---
CHEST RADIOGRAPH Indication: Chest pain, palpitations Technique: Single frontal view of the chest was obtained COMPARISON: CHEST PORTABLE on DOS: 06/19/22, CXRP on DOS: 06/18/22 FINDINGS: Lines and Tubes: None Lungs: Clear Pleura: No effusion. No pneumothorax. Cardiomediastinal contours: Unremarkable Bones: Unremarkable IMPRESSION: 1. No acute disease.
[2024-10-23 01:54] LABS: Alanine Aminotransferase 19 U/L (7-40); Alkaline Phosphatase 79 U/L (46-116); Anion Gap 10 (5-15); Aspartate Aminotransferase 21 U/L (<34); BUN/Creatinine Ratio 11.4 (10.0-20.0); Bilirubin, Total 0.4 mg/dL (0.2-1.0); Blood Urea Nitrogen 18 mg/dL (9-23); Calcium 9.3 mg/dL (8.7-10.4); Carbon Dioxide 27 mmol/L (20-31); Chloride 106 mmol/L (98-107); Glucose 98 mg/dL (74-106); Magnesium 2.4 mg/dL (1.6-2.6); Potassium 3.9 mmol/L (3.5-5.1); Sodium 143 mmol/L (136-145); Total Protein 7.7 g/dL (5.7-8.2)
[2024-10-23 01:55] LABS: Albumin 4.9 g/dL (3.2-4.8)
[2024-10-23 02:10] VITALS: PULSE 51; RESP 16; O2SAT 98
[2024-10-23] MEDS: ACETAMINOPHEN 325 MG TAB PO ONE (04:13)
--- NOTE | 2024-10-23 06:06 | ECG ---
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
--- NOTE | 2024-10-23 06:08 | ECG ---
[facility] Test Date: 2024-10-23 Test Time: 02:46:57 Pat Name: KELSEA GUNN Department: ED Room: 0270T Gender: M Planer Off Bearer: : 1975 Requested By: FANY BLOOM Order Number: [id number] Reading MD: Curt Padilla Measurements Intervals [place] Rate: 51 P: 44 DE: 192 QRS: 96 QRSD: 99 T: -15 QT: 484 QTc: 446 Interpretive Statements Sinus rhythm Borderline right axis deviation Nonspecific repol abnormality, inferior leads Electronically Signed On 10-26-2024 22:38:43 PDT by Curt Padilla Please click the below link to view image of tracing.
[2024-10-23] MEDS ORDERED: MORPHINE SULFATE INJ 2 MG/ml SYRG IV PRN (07:00)
[2024-10-23] MEDS ORDERED: ACETAMINOPHEN 325 MG TAB PO PRN (07:00)
[2024-10-23] MEDS ORDERED: ONDANSETRON HCL 4 MG/2 ML VIAL IV PRN (07:00)
[2024-10-23] MEDS ORDERED: NITROGLYCERIN 0.4 MG SL TAB SL PRN ×2 (07:00)
[2024-10-23] MEDS ORDERED: MORPHINE SULFATE 4 MG/ML SYR/VIAL IV PRN (07:00)
--- NOTE | 2024-10-23 07:23 | DVHHP2 ---
History of Present Illness Reason for Visit: Chest pain History of Present Illness Kirby David is a 49YO M with pmHx of Afib and HTN who presents to the ED with chest pain and palpitations last night. He reported that his BP was also high. 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 Padilla and sees him regularly with an upcoming appointment this month. He states he was on a heart monitor, had an angio, and echo recently this year with no abnormalities reported. He states his heart rate is normally low and is compliant with his medications. Patient denies any recent trauma or injury, recent sick contacts, recent injestion of spoiled food, recent travels, sob, fever, chills, lightheadedness, weakness, dizziness, abdominal pain, nausea, vomiting, or diarrhea. Patient states that he his heart does not feel like its racing but more like "pulsating" on and off. Cardiovascular: AFIB, HTN Past Surgical History: Other Past Surgical History Right shoulder and left hand Family History: DM, Other (mom and brother with DM) Smoke: No ALCOHOL: none Drugs: None Lives: with Family Domestic Violence: Neg Review of Systems Cardiovascular: Chest Pain Allergies: Coded Allergies: NO KNOWN ALLERGIES (Unverified , 09/02/22) Medications Current Medications Medications Dose Ordered Sig/Ita Route Start Time Stop Time Status Last Admin Dose Admin Aspirin 81 mg DAILY PO 10/23/24 10:00 UNV Atorvastatin Calcium 40 mg HS PO 10/23/24 22:00 UNV Morphine Sulfate 2 mg Q30MP PRN IV 10/23/24 07:00 UNV Acetaminophen 650 mg Q6HP PRN PO 10/23/24 07:00 UNV Nitroglycerin 0.4 mg Q5MINP PRN SL 10/23/24 07:00 UNV Ondansetron HCl 4 mg Q4HP PRN IV 10/23/24 07:00 UNV Nitroglycerin 0.4 mg Q5MINP PRN SL 10/23/24 07:00 UNV Morphine Sulfate 2 mg Q30M PRN IV 10/23/24 07:00 UNV Apixaban 5 mg BID PO 10/23/24 10:00 UNV Hydrochlorothiazide 12.5 mg DAILY PO 10/23/24 10:00 UNV Patient Own Medication 100 mg DAILY PO 10/23/24 10:00 UNV Exam Vital Signs Vital Signs Date Time Temp Pulse Resp B/P (MAP) Pulse Ox O2 Delivery O2 Flow Rate FiO2 10/23/24 05:39 49 10/23/24 04:13 98.2 10/23/24 04:00 12 145/93 (110) 97 10/23/24 02:10 Room Air* 0 21 General Appearance: Alert, Oriented X3, Cooperative, No acute distress HEENT: Atraumatic, PERRLA, EOMI, Mucous membr. moist/pink Respiratory: Clear to auscultation, Normal air movement Cardiovascular: Normal S1, Normal S2, No murmurs Abdominal: Normal bowel sounds, Soft Extremities: No clubbing, No cyanosis, No edema, Normal pulses Skin: No significant lesion Neuro: Normal speech, Strength at 5/5 X4 ext, Normal tone, Sensation intact Psych/Mental Status: Mental status NL, Mood NL Labs/Xrays Labs Test 10/23/24 05:34 10/23/24 02:33 10/23/24 01:28 Range/Units Troponin I High Sensitivity < 3 L </=54 ng/L POC Glucose 75 70-106 mg/dl White Blood Count 7.1 4.4-10.8 10^3/uL Red Blood Count 4.90 4.5-5.90 10^6/uL Hemoglobin 14.8 13.5-17.5 g/dL Hematocrit 43.3 41.0-53.0 % Mean Corpuscular Volume 88.4 80.0-100.0 fL Mean Corpuscular Hemoglobin 30.3 28.0-32.0 pg Mean Corpuscular Hemoglobin Concent 34.2 32.0-36.0 g/dL Red Cell Distribution Width 12.7 11.8-14.3 % Platelet Count 189 140-450 10^3/uL Mean Platelet Volume 9.5 6.9-10.8 fL Neutrophils (%) (Auto) 54.5 37.0-80.0 % Lymphocytes (%) (Auto) 34.7 10.0-50.0 % Monocytes (%) (Auto) 9.6 0.0-12.0 % Eosinophils (%) (Auto) 0.8 0.0-7.0 % Basophils (%) (Auto) 0.4 0.0-2.0 % Neutrophils # (Auto) 3.9 1.6-8.6 10 ^3/uL Lymphocytes # (Auto) 2.5 0.4-5.4 10 ^3/uL Monocytes # (Auto) 0.7 0-1.3 10 ^3/uL Eosinophils # (Auto) 0.1 0-0.8 10 ^3/uL Basophils # (Auto) 0 0-0.2 10 ^3/uL Nucleated Red Blood Cells 0.1 % Sodium Level 143 136-145 mmol/L Potassium Level 3.9 3.5-5.1 mmol/L Chloride Level 106 98-107 mmol/L Carbon Dioxide Level 27 20-31 mmol/L Anion Gap 10 5-15 Blood Urea Nitrogen 18 9-23 mg/dL Creatinine 1.58 H 0.700-1.30 mg/dL Glomerular Filtration Rate Calc 53 >90 mL/min BUN/Creatinine Ratio 11.4 10.0-20.0 Serum Glucose 98 74-106 mg/dL Calcium Level 9.3 8.7-10.4 mg/dL Magnesium Level 2.4 1.6-2.6 mg/dL Total Bilirubin 0.4 0.2-1.0 mg/dL Aspartate Amino Transferase (AST) 21 <34 U/L Alanine Aminotransferase (ALT) 19 7-40 U/L Alkaline Phosphatase 79 46-116 U/L B-Type Natriuretic Peptide 19.11 0-100 pg/mL Total Protein 7.7 5.7-8.2 g/dL Albumin 4.9 H 3.2-4.8 g/dL CHEST RADIOGRAPH Indication: Chest pain, palpitations Technique: Single frontal view of the chest was obtained COMPARISON: CHEST PORTABLE on DOS: 06/19/22, CXRP on DOS: 06/18/22 FINDINGS: Lines and Tubes: None Lungs: Clear Pleura: No effusion. No pneumothorax. Cardiomediastinal contours: Unremarkable Bones: Unremarkable IMPRESSION: 1. No acute disease. Assessment/Plan Assessment/Plan Assessment Chest pain with palpitations Hx of Afib Hx of HTN Plan admit to tele antiemetics pain mgmt echo tsh lipid ua uds a1c mag trop neg x 3 diet home meds recon with some held dvt and pud ppx discussed plan of care with patient and nurse cardiology consult Chencho Vasc score 1 point Plan discussed with: Patient My Orders Orders - RAOY SANFORD DYE HOUSE WHEEL OPERATOR Procedure Category Date Status Time Admit ADMIT 10/23/24 Transmitted 06:46 Code Status CODE 10/23/24 Transmitted 06:46 Hand Flatwork Finisher [facility] 10/23/24 In Process 06:46 Aspirin Tablet PHA 10/23/24 Logged 10:00 Atorvastatin (Lipitor) PHA 10/23/24 Logged 22:00 Morphine Sulfate PHA 10/23/24 Logged Injection 07:00 Acetaminophen Tablet PHA 10/23/24 Logged (Tylenol Tablet) 07:00 Complete Blood Count LAB 10/24/24 Verified 04:00 Basic Metabolic Panel LAB 10/24/24 Verified 04:00 Magnesium LAB 10/24/24 Verified 04:00 Lipid Panel LAB 10/24/24 Verified 04:00 Echo 2d Mode Cardiac US 10/23/24 Logged DOP 06:46 Nitroglycerin PHA 10/23/24 Logged Sublingual (Ntrostat 07:00 Ondansetron Hcl PHA 10/23/24 Logged (Zofran) 07:00 Electrocardigram EKG 10/24/24 Logged 04:00 Troponin-I Hs LAB 10/23/24 Logged 06:46 Cardiac JACQUELINE 10/23/24 In Process Rehabilitation - Outpa Nitroglycerin [facility] 10/23/24 Logged Sublingual (Ntrostat 07:00 Morphine Sulfate PHA 10/23/24 Logged Injection 07:00 Stat Ekg For Chest [facility] 10/23/24 In Process Pain 06:46 Notify Of Changes [facility] 10/23/24 In Process From Base 06:46 Window Clerk For [facility] 10/23/24 In Process 24 Hours 06:46 Emergency Dysrhythmia [facility] 10/23/24 In Process Protocol 06:46 Rhythm Strips Once [facility] 10/23/24 In Process Every Shift 06:46 Oxygen By Nasal RT 10/23/24 Transmitted Cannula 06:46 Thyroid Stimulating LAB 10/23/24 Logged Hormone 06:46 Urinalysis LAB 10/23/24 Logged 06:46 Drug Screen LAB 10/23/24 Logged 06:46 Free T4 (Free LAB 10/23/24 Logged Thyroxine) 06:46 Apixaban (Eliquis) PHA 10/23/24 Logged 10:00 Hydrochlorothiazide PHA 10/23/24 Logged Tablet (Hydrochlorot 10:00 (Nf) Losartan PHA 10/23/24 Logged Potassium 10:00 * Cardiology Consult CONS 10/23/24 Verified 07:04 Date of Service: Oct 23, 2024 Billing Provider: RAYO SANFORD Common Visit Codes: [id number] INP/OBS CARE (HIGH) RAYO SANFORD Oct 23, 2024 07:23
[2024-10-23 08:20] VITALS: PULSE 50; RESP 11; O2SAT 96
[2024-10-23 08:36] LABS: Urine Bacteria None Seen /hpf (None Seen)
[2024-10-23 08:55] LABS: Urine Blood Negative /uL (Negative); Urine Clarity Clear (Clear); Urine Color Light-Yellow (Yellow); Urine Protein, UAD Negative (Negative); Urine Specific Gravity 1.023 (1.001-1.035); Urine Squamous Epithelial Cell None Seen /hpf (<5); Urine Urobilinogen Normal (Negative); Urine WBC < 1 /HPF (0-3)
[2024-10-23 09:00] LABS: Amphetamine Screen, Urine Neg (NEGATIVE); Barbiturate Scree,Urine Neg (NEGATIVE); Benzodiazephine Screen, Urine Neg (NEGATIVE); Cannabinoid Screen, Urine Neg (NEGATIVE); Cocaine Screen, Urine Neg (NEGATIVE); Opiate Scree,Urine Neg (NEGATIVE); Phencyclidine Screen, Urine Neg (NEGATIVE)
[2024-10-23] MEDS ORDERED: ENOXAPARIN SOD 30 MG/0.3 ML SYRINGE SC SCH (10:00)
[2024-10-23 10:30] VITALS: BP 155/92; PULSE 50; RESP 19; TEMP 98.1; O2SAT 95
[2024-10-23 11:12] VITALS: BP 155/92; PULSE 50; RESP 19; TEMP 98.1; O2SAT 95
[2024-10-23] MEDS: ASPirin 81 mg TAB PO SCH (11:21)
[2024-10-23] MEDS: APIXABAN 5 MG TAB PO SCH (11:21)
[2024-10-23] MEDS: hydroCHLOROthiazide 25 MG TAB PO SCH (11:22)
[2024-10-23] MEDS: LOSARTAN POTASSIUM 50 MG TAB PO SCH (11:22)
--- NOTE | 2024-10-23 12:24 | DVHINCON2 ---
Date Seen: Oct 23, 2024 Referring Physician Kinza CASAREZ Reason for Consultation Palpitations History of Present Illness A 49-year-old male with past medical history of atrial fibrillation, hypertension, and obstructive sleep apnea presents to the emergency department with complaint of palpitations and chest pain. The patient reports awakening from sleep with a sensation of chest palpitations followed by nonradiating chest pressure. He is currently prescribed metoprolol, Eliquis, Jardiance, and amiodarone. He previously underwent a left heart catheterization in September 2022 which revealed normal coronary arteries. A prior echocardiogram showed a left ventricular ejection fraction of 60%. In the emergency department, a 12 lead ECG showed normal sinus rhythm. Metoprolol was held during evaluation due to episodes of bradycardia with heart rates dropping into 40s. The patient denies tobacco, alcohol, or illicit drug use. Past Medical History As stated in HPI Past Surgical History Left heart catheterization Family History: Diabetes mellitus G8 MOTHER G8 BROTHER Family History Reviewed, non-contributory to the management of this case. Social History The patient lives at home, denies smoking, alcohol or illicit drugs abuse. Allergies: Coded Allergies: NO KNOWN ALLERGIES (Unverified , 09/02/22) Home Meds Reported Medications Rosuvastatin Calcium (Crestor) 10 Mg Tab, 10 MG PO DAILY, TAB 09/12/23 Empagliflozin (Jardiance) 25 Mg Tab, 25 MG PO DAILY, TAB 09/12/23 Losartan Potassium (Losartan Potassium) 100 Mg Tab, 100 MG PO DAILY, TAB 09/12/23 Hctz (Hydrochlorothiazide) 25 Mg Tab, 12.5 MG PO DAILY for HTN, TAB 09/02/22 Apixaban Base (ELIQUIS) 5 Mg Tab, 5 MG PO BID for STOPPED 08/31/22, TAB 09/02/22 Amiodarone Hcl (Amiodarone Hcl) 200 Mg Tab, 200 MG PO BID for ARRHYTHMIA 09/02/22 Metoprolol Tartrate (Metoprolol Tartrate) 25 Mg Tab, 25 MG PO BID for HTN for 30 Days, MG 11/24/18 Current Medications Current Medications Medications (Trade) Dose Ordered Sig/Ita Route PRN Reason Start Time Stop Time Status Last Admin Aspirin 81 mg DAILY PO 10/23/24 10:00 10/23/24 11:21 Atorvastatin Calcium (Lipitor) 40 mg HS PO 10/23/24 22:00 Morphine Sulfate 2 mg Q30MP PRN IV FOR CHEST PAIN 10/23/24 07:00 10/23/24 07:33 DC Acetaminophen (Tylenol Tablet) 650 mg Q6HP PRN PO MILD PAIN (1-3 PAIN SCALE) 10/23/24 07:00 Nitroglycerin (Ntrostat Sublingual) 0.4 mg Q5MINP PRN SL FOR CHEST PAIN 10/23/24 07:00 10/23/24 07:33 DC Ondansetron HCl (Zofran) 4 mg Q4HP PRN IV NAUSEA / VOMITING 10/23/24 07:00 Nitroglycerin (Ntrostat Sublingual) 0.4 mg Q5MINP PRN SL FOR CHEST PAIN 10/23/24 07:00 Morphine Sulfate 2 mg Q30M PRN IV FOR CHEST PAIN 10/23/24 07:00 Apixaban (Eliquis) 5 mg BID PO 10/23/24 10:00 10/23/24 11:21 Hydrochlorothiazide (hydroCHLOROthiazide TABLET) 12.5 mg DAILY PO 10/23/24 10:00 10/23/24 11:22 Losartan Potassium (Cozaar Tablet) 100 mg DAILY PO 10/23/24 10:00 10/23/24 11:22 Enoxaparin Sodium (Lovenox) 30 mg DAILY SC 10/23/24 10:00 10/23/24 07:37 DC Review of Systems Constitutional: Denies fever, chills, or weight loss Ears, Nose, & Throat: No symptom reported Eyes: No symptom reported Neurological: No symptoms reported Pulmonary/Respiratory: Denies shortness of breath, cough, or wheezing Cardiovascular: Positive for palpitations and nonradiating chest pressure. Denies syncope, edema, or orthopnea Gastrointestinal: No symptom reported Genitourinary: No symptom reported Musculoskeletal: No symptom reported Skin: No symptom reported Psychiatric: No symptom reported Endocrine: No symptom reported Hemotologic/Lymphatic: No symptom reported Vital Signs Vital Signs Date Time Temp Pulse Resp B/P (MAP) Pulse Ox O2 Delivery O2 Flow Rate FiO2 10/23/24 11:22 155/92 10/23/24 11:12 98.1 50 19 95 98.1 10/23/24 08:20 Room Air* 0 21 Physical Exam INITIAL VITAL SIGNS: Reviewed by me GENERAL: Alert and interactive. No acute distress. HEAD: Head is normocephalic and atraumatic. EYES: EOMI, PERRL. No scleral icterus. No conjunctival injection. ENT: Moist mucous membranes. NECK: Supple, No masses, Full range of motion. RESPIRATORY: No tachypnea. Clear breath sounds bilaterally. No wheezing, rales, rhonchi. CV: Bradycardia but regular rhythm, no murmurs, rubs or gallops GI/: Active bowel sounds, soft, nondistended, nontender. No guarding. No rebound. No masses. No CVA tenderness. INTEGUMENTARY: Warm and dry. No obvious rashes. NEUROLOGIC: Alert and oriented. Face is symmetric. Speech is normal. Moves all extremities equally. Labs/Diagnostic Data Labs Test 10/23/24 08:05 10/23/24 05:34 10/23/24 02:44 10/23/24 02:33 Range/Units Urine Color Light-yellow Yellow Urine Clarity Clear Clear Urine pH 7.0 5.0-9.0 Urine Specific [place] 1.023 1.001-1.035 Urine Protein Negative Negative Urine Ketones Negative Negative Urine Blood Negative Negative /uL Urine Nitrite Negative Negative Urine Bilirubin Negative Negative Urine Urobilinogen Normal Negative mg/dL Urine Leukocyte Esterase Negative Negative /uL Urine RBC <1 0 - 3 /hpf Urine Microscopic WBC < 1 0-3 /HPF Urine Squamous Epithelial Cells None seen <5 /hpf Urine Bacteria None seen None Seen /hpf Urine Glucose 4+ H Normal mg/dL Urine Opiates Screen Neg NEGATIVE Urine Fentanyl Screen Neg NEGATIVE Urine Barbiturates Screen Neg NEGATIVE Urine Phencyclidine Screen Neg NEGATIVE Urine Amphetamines Screen Neg NEGATIVE Urine Benzodiazepines Screen Neg NEGATIVE Urine Cocaine Screen Neg NEGATIVE Urine Cannabinoids Screen Neg NEGATIVE Magnesium Level 2.4 1.6-2.6 mg/dL Troponin I High Sensitivity < 3 L </=54 ng/L Thyroid Stimulating Hormone (TSH) 2.28 0.55-4.78 uIU/mL POC Glucose 75 70-106 mg/dl Test 10/23/24 01:28 Range/Units White Blood Count 7.1 4.4-10.8 10^3/uL Red Blood Count 4.90 4.5-5.90 10^6/uL Hemoglobin 14.8 13.5-17.5 g/dL Hematocrit 43.3 41.0-53.0 % Mean Corpuscular Volume 88.4 80.0-100.0 fL Mean Corpuscular Hemoglobin 30.3 28.0-32.0 pg Mean Corpuscular Hemoglobin Concent 34.2 32.0-36.0 g/dL Red Cell Distribution Width 12.7 11.8-14.3 % Platelet Count 189 140-450 10^3/uL Mean Platelet Volume 9.5 6.9-10.8 fL Neutrophils (%) (Auto) 54.5 37.0-80.0 % Lymphocytes (%) (Auto) 34.7 10.0-50.0 % Monocytes (%) (Auto) 9.6 0.0-12.0 % Eosinophils (%) (Auto) 0.8 0.0-7.0 % Basophils (%) (Auto) 0.4 0.0-2.0 % Neutrophils # (Auto) 3.9 1.6-8.6 10 ^3/uL Lymphocytes # (Auto) 2.5 0.4-5.4 10 ^3/uL Monocytes # (Auto) 0.7 0-1.3 10 ^3/uL Eosinophils # (Auto) 0.1 0-0.8 10 ^3/uL Basophils # (Auto) 0 0-0.2 10 ^3/uL Nucleated Red Blood Cells 0.1 % Sodium Level 143 136-145 mmol/L Potassium Level 3.9 3.5-5.1 mmol/L Chloride Level 106 98-107 mmol/L Carbon Dioxide Level 27 20-31 mmol/L Anion Gap 10 5-15 Blood Urea Nitrogen 18 9-23 mg/dL Creatinine 1.58 H 0.700-1.30 mg/dL Glomerular Filtration Rate Calc 53 >90 mL/min BUN/Creatinine Ratio 11.4 10.0-20.0 Serum Glucose 98 74-106 mg/dL Hemoglobin A1c 5.2 <5.7 % A1C Calcium Level 9.3 8.7-10.4 mg/dL Total Bilirubin 0.4 0.2-1.0 mg/dL Aspartate Amino Transferase (AST) 21 <34 U/L Alanine Aminotransferase (ALT) 19 7-40 U/L Alkaline Phosphatase 79 46-116 U/L B-Type Natriuretic Peptide 19.11 0-100 pg/mL Total Protein 7.7 5.7-8.2 g/dL Albumin 4.9 H 3.2-4.8 g/dL Free Thyroxine (T4) Calculated 1.69 0.89-1.76 ng/dL PROCEDURE(s): CXR1 - CHEST XRAY 1 VIEW REASON: Chest pain, palpitations ORDER NUMBER(s): [id number], ACCESSION NUMBER(s): [id number] CHEST RADIOGRAPH Indication: Chest pain, palpitations Technique: Single frontal view of the chest was obtained COMPARISON: CHEST PORTABLE on DOS: 06/19/22, CXRP on DOS: 06/18/22 FINDINGS: Lines and Tubes: None Lungs: Clear Pleura: No effusion. No pneumothorax. Cardiomediastinal contours: Unremarkable Bones: Unremarkable IMPRESSION: 1. No acute disease. Assessment Paroxysmal atrial fibrillation, currently normal sinus rhythm Bradycardia, possible tachy-montse syndrome Hypertension Obstructive sleep apnea Obesity Plan/Recommendation (Dr. Colón ): 1. Atrial fibrillation/bradycardia * History of paroxysmal AFib, currently on metoprolol, amiodarone, and Eliquis * Metoprolol held due to documented bradycardia * Continue with amiodarone with telemetry monitoring * Order transthoracic echocardiogram to assess cardiac function (prior EF 60%) * Monitor on telemetry for arrhythmias, especially tachy-montse pattern * If rhythm and echo remained stable, and no further bradyarrhythmias, ca rdiology may sign of with outpatient EP follow-up 2. Chest pain * Atypical, nonradiating, associated with palpitations * Serial troponin negative * Twelve lead ECG normal sinus * Chest x-ray is unremarkable 3. Electrolyte management * Start magnesium oxide 400 mg p.o. b.i.d. * Daily BMP with magnesium and potassium 4. Hypertension/LANCE * Continue with current antihypertensive medication * Encouraged adherence to CPAP therapy given pt reported unable to sleep recently For unremarkable cardiac workup and if stable, discharged with cardiology and EP follow-up. Reinforced adherence to anticoagulations and medications. This medical document was created using an electronic medical record system with voice recognition software and computerized dictation system. Although this document has been carefully reviewed, there might still be some phonetic and typographical errors. Occasional wrong-word or ``sound-alike substitutions may have occurred due to the inherent limitations of voice recognition software. These areas are purely typographical due to imperfections of the software programs and do not reflect any compromise in the patient's medical care. Please read the chart carefully and recognize, using context, where these substitutions have occurred. Plan discussed with: Patient Plan discussed with: Patient NYHA Physical activity limitations: NA Date of Service: Oct 23, 2024 Billing Provider: GUERA COLÓN MD Cardiology Common Codes: CONSULT ONLY Cardiology Consultation Codes: [id number] CONSULT <45MIN JAVAD BARROW DIRECTOR OF TECHNOLOGY Oct 23, 2024 12:24
[2024-10-23 13:00] VITALS: BP 160/103; PULSE 50; RESP 19; TEMP 97; O2SAT 98
[2024-10-23] MEDS: MAGNESIUM OXIDE 400 MG TAB PO ONE (13:52)
[2024-10-23] MEDS: NIFEdipine ER 30 MG TAB PO ONE (14:56)
[2024-10-23 17:00] VITALS: BP 153/97; PULSE 51; RESP 17; TEMP 96.8; O2SAT 98
[2024-10-23] MEDS ORDERED: NIFE1TAB30 PO (17:54)
[2024-10-23] MEDS ORDERED: ATORVASTATIN 20 MG TAB PO SCH (22:00)
[2024-10-23] MEDS ORDERED: MAGNESIUM OXIDE 400 MG TAB PO SCH (22:00)
--- NOTE | 2024-10-23 23:17 | DVHINCON2 ---
Date Seen: Oct 23, 2024 Referring Physician Kinza CASAREZ Reason for Consultation Palpitations History of Present Illness This is a 49-year-old male with a past medical history of atrial fibrillation, hypertension, and obstructive sleep apnea who presents to the emergency department with a complaint of heart palpitations and chest pain. Patient reports awakening from sleep with a sensation of chest palpitations followed by nonradiating chest pressure. Patient is currently prescribed metoprolol, Eliquis, Jardiance, and amiodarone. He previously underwent a left heart catheterization in September 2022 which revealed normal coronary arteries. A prior echocardiogram showed a left ventricular ejection fraction of 60%. In the emergency department, a 12 lead ECG showed normal sinus rhythm. Metoprolol was held during evaluation due to episodes of bradycardia with heart rates dropping into 40s. The patient denies tobacco, alcohol, or illicit drug use. Troponin was negative. Chest x-ray shows NAD. Patient was admitted to the hospital. I am asked to consult on this patient. Past Medical History As stated in HPI Past Surgical History Left heart catheterization Family History: Diabetes mellitus G8 MOTHER G8 BROTHER Allergies: Coded Allergies: NO KNOWN ALLERGIES (Unverified , 09/02/22) Home Meds Active Scripts Nifedipine (Nifedipine Er) 60 Mg Tab, 1 TAB PO DAILY for 30 Days, #30 TAB 5 Refills Prov:ELISE WADSWORTH JANITORIAL SUPERVISOR 10/23/24 Reported Medications Rosuvastatin Calcium (Crestor) 10 Mg Tab, 10 MG PO DAILY, TAB 09/12/23 Empagliflozin (Jardiance) 25 Mg Tab, 25 MG PO DAILY, TAB 09/12/23 Losartan Potassium (Losartan Potassium) 100 Mg Tab, 100 MG PO DAILY, TAB 09/12/23 Apixaban Base (ELIQUIS) 5 Mg Tab, 5 MG PO BID for STOPPED 08/31/22, TAB 09/02/22 Metoprolol Tartrate (Metoprolol Tartrate) 25 Mg Tab, 25 MG PO BID for HTN for 30 Days, MG 11/24/18 Current Medications Current Medications Medications (Trade) Dose Ordered Sig/Ita Route PRN Reason Start Time Stop Time Status Last Admin Aspirin 81 mg DAILY PO 10/23/24 10:00 10/23/24 11:21 Atorvastatin Calcium (Lipitor) 40 mg HS PO 10/23/24 22:00 Morphine Sulfate 2 mg Q30MP PRN IV FOR CHEST PAIN 10/23/24 07:00 10/23/24 07:33 DC Acetaminophen (Tylenol Tablet) 650 mg Q6HP PRN PO MILD PAIN (1-3 PAIN SCALE) 10/23/24 07:00 Nitroglycerin (Ntrostat Sublingual) 0.4 mg Q5MINP PRN SL FOR CHEST PAIN 10/23/24 07:00 10/23/24 07:33 DC Ondansetron HCl (Zofran) 4 mg Q4HP PRN IV NAUSEA / VOMITING 10/23/24 07:00 Nitroglycerin (Ntrostat Sublingual) 0.4 mg Q5MINP PRN SL FOR CHEST PAIN 10/23/24 07:00 Morphine Sulfate 2 mg Q30M PRN IV FOR CHEST PAIN 10/23/24 07:00 Apixaban (Eliquis) 5 mg BID PO 10/23/24 10:00 10/23/24 11:21 Hydrochlorothiazide (hydroCHLOROthiazide TABLET) 12.5 mg DAILY PO 10/23/24 10:00 10/23/24 11:22 Losartan Potassium (Cozaar Tablet) 100 mg DAILY PO 10/23/24 10:00 10/23/24 11:22 Enoxaparin Sodium (Lovenox) 30 mg DAILY SC 10/23/24 10:00 10/23/24 07:37 DC Magnesium Oxide (Mag-Ox Tablet) 400 mg BID PO 10/23/24 22:00 Nifedipine (Procardia Xl (Time-Release)) 60 mg DAILY PO 10/24/24 10:00 UNV Review of Systems Constitutional: Denies fever, chills, or weight loss Ears, Nose, & Throat: No symptom reported Eyes: No symptom reported Neurological: No symptoms reported Pulmonary/Respiratory: Denies shortness of breath, cough, or wheezing Cardiovascular: Positive for palpitations and nonradiating chest pressure. Denies syncope, edema, or orthopnea Gastrointestinal: No symptom reported Genitourinary: No symptom reported Musculoskeletal: No symptom reported Skin: No symptom reported Psychiatric: No symptom reported Endocrine: No symptom reported Hemotologic/Lymphatic: No symptom reported Vital Signs Vital Signs Date Time Temp Pulse Resp B/P (MAP) Pulse Ox O2 Delivery O2 Flow Rate FiO2 10/23/24 13:00 97.0 50 19 160/103 (122) 98 97.0 10/23/24 08:20 Room Air* 0 21 Physical Exam GENERAL: Alert and oriented x 3. No acute distress. EYES: PERRL, EOMI. Anicteric. HENT: Moist mucous membranes. LUNGS: Clear to auscultation bilaterally. CARDIOVASCULAR: Irregular rate and rhythm. ABDOMEN: Soft, nontender and nondistended. EXTREMITIES: No edema. NEUROLOGIC: No focal neurological deficits. SKIN: Warm, dry. Labs/Diagnostic Data Labs Test 10/23/24 08:05 10/23/24 05:34 10/23/24 02:44 10/23/24 02:33 Range/Units Urine Color Light-yellow Yellow Urine Clarity Clear Clear Urine pH 7.0 5.0-9.0 Urine Specific [place] 1.023 1.001-1.035 Urine Protein Negative Negative Urine Ketones Negative Negative Urine Blood Negative Negative /uL Urine Nitrite Negative Negative Urine Bilirubin Negative Negative Urine Urobilinogen Normal Negative mg/dL Urine Leukocyte Esterase Negative Negative /uL Urine RBC <1 0 - 3 /hpf Urine Microscopic WBC < 1 0-3 /HPF Urine Squamous Epithelial Cells None seen <5 /hpf Urine Bacteria None seen None Seen /hpf Urine Glucose 4+ H Normal mg/dL Urine Opiates Screen Neg NEGATIVE Urine Fentanyl Screen Neg NEGATIVE Urine Barbiturates Screen Neg NEGATIVE Urine Phencyclidine Screen Neg NEGATIVE Urine Amphetamines Screen Neg NEGATIVE Urine Benzodiazepines Screen Neg NEGATIVE Urine Cocaine Screen Neg NEGATIVE Urine Cannabinoids Screen Neg NEGATIVE Magnesium Level 2.4 1.6-2.6 mg/dL Troponin I High Sensitivity < 3 L </=54 ng/L Thyroid Stimulating Hormone (TSH) 2.28 0.55-4.78 uIU/mL POC Glucose 75 70-106 mg/dl Test 10/23/24 01:28 Range/Units White Blood Count 7.1 4.4-10.8 10^3/uL Red Blood Count 4.90 4.5-5.90 10^6/uL Hemoglobin 14.8 13.5-17.5 g/dL Hematocrit 43.3 41.0-53.0 % Mean Corpuscular Volume 88.4 80.0-100.0 fL Mean Corpuscular Hemoglobin 30.3 28.0-32.0 pg Mean Corpuscular Hemoglobin Concent 34.2 32.0-36.0 g/dL Red Cell Distribution Width 12.7 11.8-14.3 % Platelet Count 189 140-450 10^3/uL Mean Platelet Volume 9.5 6.9-10.8 fL Neutrophils (%) (Auto) 54.5 37.0-80.0 % Lymphocytes (%) (Auto) 34.7 10.0-50.0 % Monocytes (%) (Auto) 9.6 0.0-12.0 % Eosinophils (%) (Auto) 0.8 0.0-7.0 % Basophils (%) (Auto) 0.4 0.0-2.0 % Neutrophils # (Auto) 3.9 1.6-8.6 10 ^3/uL Lymphocytes # (Auto) 2.5 0.4-5.4 10 ^3/uL Monocytes # (Auto) 0.7 0-1.3 10 ^3/uL Eosinophils # (Auto) 0.1 0-0.8 10 ^3/uL Basophils # (Auto) 0 0-0.2 10 ^3/uL Nucleated Red Blood Cells 0.1 % Sodium Level 143 136-145 mmol/L Potassium Level 3.9 3.5-5.1 mmol/L Chloride Level 106 98-107 mmol/L Carbon Dioxide Level 27 20-31 mmol/L Anion Gap 10 5-15 Blood Urea Nitrogen 18 9-23 mg/dL Creatinine 1.58 H 0.700-1.30 mg/dL Glomerular Filtration Rate Calc 53 >90 mL/min BUN/Creatinine Ratio 11.4 10.0-20.0 Serum Glucose 98 74-106 mg/dL Hemoglobin A1c 5.2 <5.7 % A1C Calcium Level 9.3 8.7-10.4 mg/dL Total Bilirubin 0.4 0.2-1.0 mg/dL Aspartate Amino Transferase (AST) 21 <34 U/L Alanine Aminotransferase (ALT) 19 7-40 U/L Alkaline Phosphatase 79 46-116 U/L B-Type Natriuretic Peptide 19.11 0-100 pg/mL Total Protein 7.7 5.7-8.2 g/dL Albumin 4.9 H 3.2-4.8 g/dL Free Thyroxine (T4) Calculated 1.69 0.89-1.76 ng/dL Assessment Paroxysmal atrial fibrillation, currently normal sinus rhythm. Bradycardia, possible tachy-montse syndrome. Hypertension. Obstructive sleep apnea. Obesity. Plan/Recommendation I agree with your ongoing assessment and care of plan. Patient has been seen by Monae Hanson NP on my behalf, her and I discussed the plan with the patient. History of paroxysmal AFib, currently on metoprolol, amiodarone, and Eliquis. Metoprolol held due to documented bradycardia. Continue with amiodarone with telemetry monitoring. Order transthoracic echocardiogram to assess cardiac function (prior EF 60%). Monitor on telemetry for arrhythmias, especially tachy-montse pattern. If rhythm and echo remained stable, and no further bradyarrhythmias, cardiology may sign of with outpatient EP follow-up. Atypical, nonradiating, associated with palpitations. Serial troponin negative. Twelve lead ECG normal sinus. Chest x-ray is unremarkable. Start magnesium oxide 400 mg p.o. b.i.d.. Daily BMP with magnesium and potassium. Continue with current antihypertensive medication. Encouraged adherence to CPAP therapy given pt reported unable to sleep recently. Additional plan as per the hospital course. Plan discussed with: Patient NYHA Physical activity limitations: NA Date of Service: Oct 23, 2024 Billing Provider: GUERA COLÓN MD Cardiology Common Codes: 72962-LLOLVPI INP/OBS CARE (High) Cardiology Consultation Codes: [id number] CONSULT <45MIN GUERA COLÓN MD Oct 23, 2024 14:47
[2024-10-24] MEDS ORDERED: NIFEdipine ER 30 MG TAB PO SCH (10:00)
--- NOTE | 2024-10-25 12:25 | ECG ---
[facility] Test Date: 2024-10-23 Test Time: 01:29:22 Pat Name: KELSEA GUNN Department: ER Room: [facility]0T B Gender: M Angiography Nurse: COLUMBA : 1975 Requested By: FANY BLOOM Order Number: [id number] Reading MD: Curt Padilla Measurements Intervals [place] Rate: 59 P: 11 [place]: 183 QRS: 4 QRSD: 100 T: -1 QT: 464 QTc: 460 Interpretive Statements Sinus rhythm Borderline T abnormalities, inferior leads Baseline wander in lead(s) V1 Electronically Signed On 10-26-2024 22:38:05 PDT by Curt Padilla Please click the below link to view image of tracing.
--- NOTE | 2024-10-27 09:21 | DVHSR ---
APPROVED REPORT EXAM: Two-dimensional and M-mode echocardiogram with Doppler and color Doppler. Blood Pressure: 139/74 mmHg INDICATION Chest Pain RISK FACTORS Height: 5'10, Weight: 214 DIMENSIONS LVDd5.1 (3.8-5.7cm)LA (2D)4.3 (1.9-4.0cm)Aortic Root3.8 (2.0-3.7cm) LVDs3.7 (2.5-4.0cm)LA (MM) (1.9-4.0cm)Aortic Cusp Exc2.0 (1.5-2.0cm) EF (%) 55.0 (55-70%)Rt. Atrium4.1 (1.9-4.0cm)Asc. Aorta3.3 cm IVSd1.1 (0.7-1.1cm)RV (D)4.3 (1.8-2.4cm) PWd1.0 (0.7-1.1cm) Mitral Valve MitralMitral Stenosis E wave0.75m/sMV Mean GR.mmHg A wave0.62m/sMV Peak GR.115mmHg E/A ratio1.22D MVAcm2 DECEL [id number] 1/2 Timems Aortic Valve Aortic ValveAortic Stenosis V10.99m/Manuel Mean GR.3mmHg V21.15m/Manuel Peak GR.5mmHg LVOT Diameter2.3 (1.8-2.4cm)Doppler AVA3.57cm2 Pulmonic Valve V20.88m/s Tricuspid Valve TR Velocity2.07m/s [id number] Conclusion Technically good study. Sinus rhythm. Biatrial enlargement. Concentric LVH with aortic root enlargement. Valves are normal. EF of 55% with normal RV function. Mild TR and MR. No pericardial effusion masses or vegetations.
== END 2024-10-23 18:54 | disposition home or self-care (01) | DRG 310 ==
LOC: EEVIPCON 01:20 → ER 01:20 → OVERFLOW 06:46 → TELE-WESTW 10:20
DX: I48.0 Paroxysmal atrial fibrillation (principal); E66.9 Obesity, unspecified; G47.33 Obstructive sleep apnea (adult) (pediatric); N28.9 Disorder of kidney and ureter, unspecified; I10 Essential (primary) hypertension; Z83.3 Family history of diabetes mellitus; Z79.899 Other long term (current) drug therapy; Z68.30 Body mass index [BMI] 30.0-30.9, adult
CPT/HCPCS: 36415; 71045; 80053; 80307; 81001; 82962; 83036; 83735; 83880; 84439; 84443; 84484; 85025; 93005; 93306; G0378

== ENCOUNTER 2024-11-22 10:31 | Outpatient (CLI) | payer BC ==
[~2024-11-22 10:31] MED LIST changes: -AMIO200T33 PO; -HYDR25TA5 PO; +NIFE1TAB30 PO
[2024-11-22 13:04] LABS: Hematocrit 44.1 % (41.0-53.0); Hemoglobin 14.9 g/dL (13.5-17.5); Mean Corpuscular Hemoglobin 30.0 pg (28.0-32.0); Mean Corpuscular Volume 88.9 fL (80.0-100.0); Nucleated Red Blood Cells % 0.1 %
[2024-11-22 13:16] LABS: Urine Protein, UAD Negative (Negative)
[2024-11-22 14:31] LABS: Protein, Urine 32.8 mg/dL (1-14)
[2024-11-22 14:51] LABS: Alanine Aminotransferase 26 U/L (7-40); Alkaline Phosphatase 82 U/L (46-116); Anion Gap 9 (5-15); BUN/Creatinine Ratio 9.8 (10.0-20.0); Bilirubin, Total 0.5 mg/dL (0.2-1.0); Blood Urea Nitrogen 15 mg/dL (9-23); Calcium 9.6 mg/dL (8.7-10.4); Carbon Dioxide 28 mmol/L (20-31); Chloride 106 mmol/L (98-107); Glucose 80 mg/dL (74-106); Potassium 3.9 mmol/L (3.5-5.1); Sodium 143 mmol/L (136-145); Total Protein 8.0 g/dL (5.7-8.2); Uric Acid 5.2 mg/dL (3.7-9.2)
[2024-11-22 14:53] LABS: Albumin 4.9 g/dL (3.2-4.8)
[2024-11-22 14:55] LABS: Bilirubin, Direct 0.2 mg/dL (<0.3)
[2024-11-22 15:47] LABS: Cholesterol 141 mg/dL (< 200); HDL Cholesterol 34 mg/dL (40-59); Triglycerides 164 mg/dL (< 150)
[2024-11-23 11:07] LABS: Kappa Lite Chain Free Serum 25.0 mg/L (3.3-19.4)
== END 2024-11-22 17:00 | disposition home or self-care (01) ==
LOC: LAB 10:31
PROVIDERS: ATTEND Internal Medicine
DX: I12.9 Hypertensive chronic kidney disease with stage 1 through stage 4 chronic kidney disease, or unspecified chronic kidney disease (principal); E11.22 Type 2 diabetes mellitus with diabetic chronic kidney disease; E11.21 Type 2 diabetes mellitus with diabetic nephropathy; E21.3 Hyperparathyroidism, unspecified; N18.30 Chronic kidney disease, stage 3 unspecified; E55.9 Vitamin D deficiency, unspecified; E29.1 Testicular hypofunction; D63.1 Anemia in chronic kidney disease; N39.0 Urinary tract infection, site not specified; M10.9 Gout, unspecified; R80.9 Proteinuria, unspecified; R94.6 Abnormal results of thyroid function studies
CPT/HCPCS: 36415; 80053; 80061; 80069; 80076; 81001; 82570; 83521; 83970; 84156; 84166; 84403; 84443; 84550; 85025; 86335

== ENCOUNTER 2025-01-10 15:51 | Outpatient (CLI) | payer BC | END 2025-01-10 17:00 | disposition home or self-care (01) | LOC: LAB 15:51 | PROVIDERS: ATTEND Internal Medicine | DX: R79.89 Other specified abnormal findings of blood chemistry (principal) | CPT/HCPCS: 36415; 84403 ==

== ENCOUNTER 2025-03-02 14:20 | Outpatient (CLI) | payer BC ==
[2025-03-02 15:21] LABS: Hematocrit 42.9 % (41.0-53.0); Hemoglobin 14.5 g/dL (13.5-17.5); Mean Corpuscular Hemoglobin 30.0 pg (28.0-32.0); Mean Corpuscular Volume 88.8 fL (80.0-100.0); Nucleated Red Blood Cells % 0.1 %
[2025-03-02 15:32] LABS: Alanine Aminotransferase 12 U/L (7-40); Alkaline Phosphatase 84 U/L (46-116); Anion Gap 9 (5-15); BUN/Creatinine Ratio 8.2 (10.0-20.0); Blood Urea Nitrogen 13 mg/dL (9-23); Calcium 9.6 mg/dL (8.7-10.4); Carbon Dioxide 30 mmol/L (20-31); Chloride 106 mmol/L (98-107); Glucose 84 mg/dL (74-106); Potassium 4.0 mmol/L (3.5-5.1)
[2025-03-02 15:33] LABS: Albumin 4.7 g/dL (3.2-4.8); Cholesterol 128 mg/dL (< 200)
[2025-03-02 15:34] LABS: Bilirubin, Total 0.6 mg/dL (0.2-1.0)
[2025-03-02 15:37] LABS: HDL Cholesterol 29 mg/dL (40-59); Sodium 145 mmol/L (136-145)
[2025-03-02 15:38] LABS: Total Protein 8.3 g/dL (5.7-8.2); Triglycerides 205 mg/dL (< 150)
[2025-03-02 15:57] LABS: Urine Protein, UAD TRACE (Negative)
[2025-03-02 16:03] LABS: Uric Acid 5.6 mg/dL (3.7-9.2)
[2025-03-02 16:11] LABS: Protein, Urine 29.4 mg/dL (1-14)
== END 2025-03-02 17:00 | disposition home or self-care (01) ==
LOC: LAB 14:20
PROVIDERS: ATTEND Internal Medicine
DX: I12.9 Hypertensive chronic kidney disease with stage 1 through stage 4 chronic kidney disease, or unspecified chronic kidney disease (principal); E11.22 Type 2 diabetes mellitus with diabetic chronic kidney disease; N18.30 Chronic kidney disease, stage 3 unspecified; E11.21 Type 2 diabetes mellitus with diabetic nephropathy; E78.2 Mixed hyperlipidemia; E21.3 Hyperparathyroidism, unspecified; E55.9 Vitamin D deficiency, unspecified; N39.0 Urinary tract infection, site not specified; D63.1 Anemia in chronic kidney disease; M10.9 Gout, unspecified; R74.01 Elevation of levels of liver transaminase levels; R80.9 Proteinuria, unspecified
CPT/HCPCS: 36415; 80053; 80061; 80069; 81001; 82043; 82570; 83970; 84156; 84550; 85025

== ENCOUNTER 2025-03-23 09:32 | Outpatient (CLI) | payer BC ==
[2025-03-23 10:24] LABS: Hematocrit 43.8 % (41.0-53.0); Hemoglobin 15.0 g/dL (13.5-17.5); Mean Corpuscular Hemoglobin 30.0 pg (28.0-32.0); Mean Corpuscular Volume 87.6 fL (80.0-100.0); Nucleated Red Blood Cells % 0.1 %
[2025-03-23 11:04] LABS: Alanine Aminotransferase 36 U/L (7-40); Alkaline Phosphatase 91 U/L (46-116); Anion Gap 11 (5-15); BUN/Creatinine Ratio 9.0 (10.0-20.0); Blood Urea Nitrogen 12 mg/dL (9-23); Calcium 9.8 mg/dL (8.7-10.4); Carbon Dioxide 28 mmol/L (20-31); Chloride 106 mmol/L (98-107); Glucose 97 mg/dL (74-106); Potassium 3.6 mmol/L (3.5-5.1)
[2025-03-23 11:05] LABS: Bilirubin, Total 0.4 mg/dL (0.2-1.0)
[2025-03-23 11:11] LABS: Albumin 4.9 g/dL (3.2-4.8); Sodium 145 mmol/L (136-145); Total Protein 8.7 g/dL (5.7-8.2)
[2025-03-24 05:08] LABS: Immunoglobulin A 367 mg/dL (90-386); Immunoglobulin G, Serum 1725 mg/dL (603-1613); Immunoglobulin M 63 mg/dL (20-172)
[2025-03-24 08:07] LABS: Kappa Lite Chain Free Serum 40.4 mg/L (3.3-19.4)
[2025-03-25 08:07] LABS: Albumin 3.9 g/dL (2.9-4.4); Alpha-1-Globulin 0.3 g/dL (0.0-0.4); Alpha-2-Globulin 0.9 g/dL (0.4-1.0); Gamma Globulin 1.7 g/dL (0.4-1.8)
== END 2025-03-23 17:00 | disposition home or self-care (01) ==
LOC: LAB 09:32
PROVIDERS: ATTEND Physician Assistant Medical
DX: I13.0 Hypertensive heart and chronic kidney disease with heart failure and stage 1 through stage 4 chronic kidney disease, or unspecified chronic kidney disease (principal); N18.31 Chronic kidney disease, stage 3a; I50.9 Heart failure, unspecified; I48.0 Paroxysmal atrial fibrillation; R77.9 Abnormality of plasma protein, unspecified
CPT/HCPCS: 36415; 80053; 82232; 82784; 82785; 83521; 83615; 84155; 84165; 85025; 86334